=== PATIENT | male | born 1950 | race Caucasian/White ===

== ENCOUNTER 2025-01-15 09:24 | Outpatient (REF) | payer MEDICARE, OTHER, SELFPAY ==
--- NOTE | ~2025-01-15 | US_ITS ---
EXAMINATION: US ABDOMEN COMPLETE WITH LIVER ELASTOGRAPHY HISTORY: CHRONIC HEPATITIS TECHNIQUE: Real-time grayscale ultrasound imaging of the abdomen was performed and images were reviewed. COMPARISON: Comparison is made with the prior examination dated 07/23/2019. FINDINGS: Liver: The right lobe of the liver measures 15.4 cm in size. The left lobe of the liver measures 12.7 cm in size. The liver demonstrates increased echotexture, consistent with steatosis. No focal mass or intrahepatic biliary ductal dilatation is identified. There is normal hepatopedal flow in the portal vein. Ultrasound elastography of the liver was performed with 10 separate measurements of the liver parenchyma with the patient in the supine position. Measurements were obtained approximately 2 cm below Ketan's capsule and perpendicular to the capsule. The median shear wave velocity is 1.51 m/s. The interquartile range/median (IQR/median) is 0.07. Gallbladder and biliary tree: There are tiny polyps in the gallbladder. The gallbladder is otherwise unremarkable, without evidence of calculi, wall thickening, or pericholecystic fluid. There is no sonographic Peres sign. The common bile duct is normal in caliber measuring 3 mm. Kidneys: The right kidney measures 11.7 cm in length and demonstrates a 5 mm cyst in the interpolar region with a calcified wall. The left kidney measures 11.3 cm in length and is unremarkable. Pancreas: The pancreatic head, neck, and body are unremarkable. The pancreatic tail is obscured by bowel gas. Spleen: The spleen is enlarged, measuring 15.0 cm in length. Abdominal aorta and inferior vena cava: The visualized portions of the abdominal aorta and inferior vena cava are normal in caliber. There is no free fluid in the abdomen. US/US abdomen comp w elastography IMPRESSION: 1. Hepatic steatosis. 2. Tiny gallbladder polyps. 3. Splenomegaly. The median shear wave velocity in the liver is 1.51 m/s, corresponding to a median liver stiffness of 6.82 kPa. The IQR/median value is 0.07. This is indicative of a quality data set. Findings are indicative of a low elastography value which rules out advanced chronic liver disease in asymptomatic patients. REFERENCE: Society of Radiologists in Ultrasound Liver Stiffness Thresholds (2020): LIVER STIFFNESS THRESHOLDS: *Shear wave velocity less than 1.3 m/s (Liver Stiffness equal or less than 5 kPa): High probability of being normal. *Shear wave velocity less than 1.7 m/s (Liver Stiffness less than 9 kPa): In the absence of other known clinical signs, rules out compensated advanced chronic liver disease. *Shear wave velocity between 1.7-2.1 m/s (Liver Stiffness 9-13 kPa): Suggestive of compensated advanced chronic liver disease but need further test for confirmation. *Shear wave velocity between 2.1-2.4 m/s (Liver Stiffness 13-17 kPa): Rules in compensated advanced chronic liver disease. *Shear wave velocity greater than 2.4 m/s (Liver Stiffness over 17 kPa): Suggestive of clinically significant portal hypertension. QUALITY OF DATA SET: *IQR/Median value equal or less than 0.15 implies a quality data set. *IQR/Median value over 0.15 implies a poor quality data set. SIGNIFICANT CHANGE FROM PRIOR EXAM: Significant change if liver stiffness measurement is 10% or greater from prior exam. OTHER CONSIDERATIONS: The stage of liver fibrosis may be overestimated in the setting of acute hepatitis, liver inflammation, elevated liver function tests, hepatic vascular congestion, obstructive cholestasis, non-fasting state, and infiltrative diseases such as amyloidosis and lymphoma. In some patients with NAFLD, the liver stiffness thresholds for compensated advanced chronic liver disease may be lower. In causes other than viral hepatitis and NAFLD, liver stiffness thresholds are not well established. Electronically signed by: Bj Ventura MD 01/15/2025 11:09 AM EDT
[2025-01-15 09:41] LABS: MANUAL DIFF FLAG NO
--- OUTSIDE RECORDS SUMMARY | 2025-01-15 10:04 | XMS_ITS | Patient Health Record ---
Author Organization [facility] miguel [place]Mem[place] Address [address] [place] [address] Care Team Providers Care Supervisory Clerk Name Role Phone Simon Alcaraz MD Primary Care Provider Narayan Izquierdo Unavailable [phone] Allergies Allergen (clinical drug ingredient) Drug/Non Drug [...] Status Risk Notes Problem Plantar fascial fibromatosis (90244124) Plantar fascial fibromatosis (M72.2) Active confirmed Plan Of Treatment No Information Insurance Providers Payer Name Payer Address Payer Phone Subscriber Number Group Number Insured Name Patient Relationship to Insured Coverage Start Date Coverage End Date Medicare National Govt [employer] [address] [place] [address] [id number] Minesh Terrell Self - patient is the insured [employer] (Unicare) [address] [place] [address] [phone] [id number] Minesh Terrell Self - patient is the insured Medical (General) History Medical History History ICD Code Arthritis Back,Hip,and Knee pain Cancer Heart disease Atrial fibrillation High blood pressure Measles Mumps Chicken pox CAD Surgical History Surgery Date(Month/Year) Hernia Repair 04/2018 basal cell removal 07/2018 cataract surgery 01/29 2019 Ablation 04/2019
[2025-01-15 10:39] LABS: Basophils Absolute Auto 0.1 X10*3/uL (0.0-0.2); Eosinophils Absolute Auto 0.1 X10*3/uL (0.0-0.4); Eosinophils Percent Auto 2.1 % (0-4); Hemoglobin 15.7 g/dl (14.0-18.0); Imm Gran Abs Auto 0.06 X10*3/uL (0.00-0.03); Imm Gran Pct Auto 1.2 % (0.0-0.4); Lymphocytes Absolute Auto 0.9 X10*3/uL (1.2-4.9); Lymphocytes Percent Auto 17.7 % (20-40); Mean Corpuscular HGB Conc 34.9 g/dl (31.0-36.0); Mean Corpuscular Hemoglobin 32.4 pg (27.0-33.0); Mean Platelet Volume 10.4 fL (9.4-12.4); Monocytes Percent Auto 19.1 % (2-11); Neutrophils Absolute Auto 3.1 x10*3/uL (2.0-8.3); Neutrophils Percent Auto 58.9 % (45-73); Platelet Count 172 X10*3/uL (160-400); Red Blood Count 4.84 X10*6/uL (4.60-5.80); Red Cell Distribution Width 13.2 % (11.0-16.0); White Blood Count 5.2 X10*3/uL (4.8-10.8)
[2025-01-15 10:41] LABS: INTERNATIONAL NORM RATIO 0.9 (0.9-1.1); Prothrombin Time 10.2 SEC (10.9-12.4)
[2025-01-15 11:07] LABS: Alanine Aminotransferase 42 U/L (0-40); Albumin Level 4.4 g/dL (3.5-5.0); Alkaline Phosphatase 74 U/L (39-117); Aspartate Amino Transferase 29 U/L (5-37); Bilirubin Direct 0.3 mg/dL (0.0-0.5); Bilirubin Total 0.5 mg/dL (0.0-1.0); Total Protein 6.5 g/dL (6.5-8.0)
[2025-01-28 01:48] LABS: FIB-ALT 30 U/L (9-46); FIB-Alpha-2-Macroglobulin 138 mg/dL (106-279); FIB-Apolipoprotein A1 157 mg/dL (94-176); FIB-GGT 26 U/L (3-70); FIB-Haptoglobin 34 mg/dL (43-212); FIB-Total Bilirubin 0.5 mg/dL (0.2-1.2); Liver Fibrosis Score 0.34; Liver Fibrosis Stage F1-F2; Nec Inflam Act Grade A0; Nec Inflam Act Score 0.15
== END 2025-01-15 09:25 | disposition home or self-care (01) ==
LOC: HO.US 09:24
PROVIDERS: PCP Internal Medicine; Visit Provider Internal Medicine
DX: Z87.19 Personal history of other diseases of the digestive system (principal)
CPT/HCPCS: 36415; 76700; 76981; 80076; 81596; 82105; 85025; 85610

== ENCOUNTER → 2025-01-15 10:08 | Outpatient (BNV) | payer MEDICARE, OTHER, SELFPAY | PROVIDERS: PCP Internal Medicine; Visit Provider Radiology Diagnostic Radiology | DX: R16.1 Splenomegaly, not elsewhere classified (principal); K76.0 Fatty (change of) liver, not elsewhere classified | CPT/HCPCS: 76700; 76981 ==

== ENCOUNTER 2025-02-13 08:41 | Day surgery (SDC) | payer MEDICARE, OTHER, SELFPAY ==
--- OUTSIDE RECORDS SUMMARY | 2024-12-27 09:03 | XMS_ITS | Patient Health Record ---
Author Organization [facility] miguel WoodardOziel Address [address] [place] [address] Care Team Providers Care Music Theory Teacher Name Role Phone Simon Alcaraz MD Primary Care Provider Narayan Izquierdo Unavailable [phone] Allergies Allergen (clinical drug ingredient) Drug/Non Drug Allergy documented on EMR Reaction Allergy Type Onset Date Status Bee Stings (uncoded) Unknown Allergy Active Substance with sulfonamide structure and antibacterial mechanism of action (substance) Sulfa Drugs (uncoded) Hives Allergy Active sulfamethoxazole / trimethoprim Bactrim Hives Drug Allergy Active Reason For Referral No Information Medications Medication SIG (Take, Route, Frequency, Duration) Notes Start Date End Date Status Vitamins/Minerals - as directed Orally Active Vitamin D 50 MCG (1999) 1 tablet Oral ly Once a day for 30 day(s) Active Testosterone Active Aspirin 81 81 MG 1 tablet Orally Once a day for 30 day(s) Active Lipitor 40 MG 1 tablet Orally Once a day for 30 day(s) Active valACYclovir HCl 500 MG 1 tablet Orally Once a day for 10 day(s) Active Lisinopril 10 MG 1 tablet Orally Once a day for 30 day(s) Active Dilt-XR 180 MG 1 capsule Orally Onc e a day for 30 day(s) Active Social History Tobacco Use: Social History Observation Description Date Details (start date - stop date) Former Smoker NA - NA Tobacco Use/Smoking Question Answer Notes Are you a: former smoker Additional Findings: Tobacco Non-User Current no n-smoker Alcohol Screen Question Answer Notes Did you have a drink containing alcohol in the p ast year? Yes Points 0 Interpretation Negative Tobacco use other than smoking: Question Answer Notes Are you an other tobacco user? 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 confirmed Plan Of Treatment No Information Insurance Providers Payer Name Payer Address Payer Phone Subscriber Number Group Number Insured Name Patient Relationship to Insured Coverage Start Date Coverage End Date Medicare National Govt [employer] [address] [place] [address] [phone] [id number] Minesh Terrell Self - patient is the insured [employer] (Unicare) [address] [place] [address] [id number] Minesh Terrell Self - patient is the insured Medical (General) History Medical History History ICD Code Arthritis Back,Hip,and Knee pain Cancer Heart disease Atrial fibrillation High blood pressure Measles Mumps Chicken pox CAD Surgical History Surgery Date(Month/Year) Hernia Repair 04/2018 basal cell removal 07/2018 cataract surgery 01/29 2019 Ablation 04/2019
[2025-02-11 15:12] VITALS: BMI 31.2
--- NOTE | 2025-02-12 14:40 | HO.ANESPROP2 ---
Documented by User: Radhika Grimm NP 02/12/25 14:41 HPI - Anesthesia Eval Consult details Narrative: 74 yr old male for colonoscopy S/P cardiac ablation 2018 for a flutter with tachycardia: on eliquis ODILON: on CPAP PMFSH Past Medical History Medical History Basal cell carcinoma Hyperlipidemia HLD (hyperlipidemia) ODILON on CPAP Atrial flutter HTN (hypertension) Hx of hepatitis C Surgical History Surgical History H/O eye surgery History of liver biopsy (1994) Hx of bilateral cataract extraction Hx of umbilical hernia repair Hx of colonoscopy Social History Social History Are you a primary animal caregiver to a significant other at home: No Do you presently have visiting nurse or other home services: No Patient Tobacco Use Status: Never used Tobacco Use of substances other than those prescribed or required for medical reasons: No Have you been hit, kicked, punched, or otherwise hurt by someone within the past year? If so, by whom?: No Are you DNR?: No Advance Directives: No Advance Directives Information Provided: Yes Poor oral hygiene: No Meds Allergies Allergy/AdvReac Type Severity Reaction Status Date / Time bee pollen (BEE STINGS) Allergy Severe ANAPHYLAXIS Verified 02/13/25 08:27 sulfamethoxazole (From Allergy Severe RASH Verified 02/13/25 08:27 BACTRIM) trimethoprim (From BACTRIM) Allergy Severe RASH Verified 02/13/25 08:27 Home Medications ?Medication ?Instructions ?Recorded ?Confirmed ?Last Taken ?Type apixaban 5 mg tablet (Eliquis) 5 mg PO BID 02/11/25 02/13/25 02/06/25 History diltiazem HCl 240 mg 240 mg PO DAILY 02/11/25 02/13/25 02/13/25 07:30 History capsule,extended release 24 hr, controlled (DILT-XR) hydrochlorothiazide 25 mg tablet 25 mg PO DAILY 02/11/25 02/13/25 02/11/25 History lisinopril 30 mg tablet 30 mg PO DAILY 02/11/25 02/11/25 Unknown History rosuvastatin 40 mg tablet 40 mg PO DAILY 02/11/25 02/11/25 Unknown History Exam Height,Weight and Vital Signs: Height 5 ft 7.5 in Weight 91.626 kg Documented by User: Yary Green MD 02/13/25 09:58 PMFSH Past Medical History Medical History Basal cell carcinoma Hyperlipidemia HLD (hyperlipidemia) ODILON on CPAP Atrial flutter HTN (hypertension) Hx of hepatitis C Family History Family history of problems with anesthesia: No Surgical History Surgical History H/O eye surgery History of liver biopsy (1994) Hx of bilateral cataract extraction Hx of umbilical hernia repair Hx of colonoscopy History of Problems with Anesthesia: No Social History Social History Are you a primary animal caregiver to a significant other at home: No Do you presently have visiting nurse or other home services: No Patient Tobacco Use Status: Never used Tobacco Use of substances other than those prescribed or required for medical reasons: No Have you been hit, kicked, punched, or otherwise hurt by someone within the past year? If so, by whom?: No Are you DNR?: No Advance Directives: No Advance Directives Information Provided: Yes Poor oral hygiene: No Meds Allergies Allergy/AdvReac Type Severity Reaction Status Date / Time bee pollen (BEE STINGS) Allergy Severe ANAPHYLAXIS Verified 02/13/25 08:27 sulfamethoxazole (From Allergy Severe RASH Verified 02/13/25 08:27 BACTRIM) trimethoprim (From BACTRIM) Allergy Severe RASH Verified 02/13/25 08:27 Home Medications ?Medication ?Instructions ?Recorded ?Confirmed ?Last Taken ?Type apixaban 5 mg tablet (Eliquis) 5 mg PO BID 02/11/25 02/13/25 02/06/25 History diltiazem HCl 240 mg 240 mg PO DAILY 02/11/25 02/13/25 02/13/25 07:30 History capsule,extended release 24 hr, controlled (DILT-XR) hydrochlorothiazide 25 mg tablet 25 mg PO DAILY 02/11/25 02/13/25 02/11/25 History lisinopril 30 mg tablet 30 mg PO DAILY 02/11/25 02/11/25 Unknown History rosuvastatin 40 mg tablet 40 mg PO DAILY 02/11/25 02/11/25 Unknown History Exam Airway Mallampati Class: II TM Dist: >3cm Neck ROM: Full Heart: rrr Lungs: cta Assessment and Plan Assessment Anesthesia Assessment: Anesthesia Plan Discussed and Chart Reviewed Final Anesthetic Review Family History of Problems with Anesthesia: No History of Problems with Anesthesia: No NPO: Yes ASA Class: III Final Preanesthetic Review: No Changes in Pt Med Stat, Meds/Allgs Chart Reviewed, Consent Obtained/Reviewed and Anes Risks/Benef Reviewed Patient Risk: Intermediate Procedure Risk: Low Anesthetic Plan Anesthetic Plan: MAC: Disposition: Standard PACU
[2025-02-13 08:51] VITALS: BMI 30.9
[2025-02-13 09:07] VITALS: BP 124/76; PULSE 87; RESP 16; TEMP 36.1; O2SAT 98
[2025-02-13] MEDS: Lactated Ringers 1,000 ML 100 ML IVCONT (09:22)
[2025-02-13 11:05] VITALS: BP 103/62; PULSE 70; RESP 20; TEMP 35.9; O2SAT 95
--- NOTE | 2025-02-13 11:07 | PM.OP ---
Brief Operative Note Date of Service: 02/13/25 Pre-op diagnosis: Screening Post-op diagnosis: other (Colon polyps) Procedure: Colonoscopy to the cecum and TI with cold bx/removal of polyps, cold snare polypectomy, and hot snare polypectomy, and with placement of 3 Resolution clips Surgeon: Bj Carrillo MD Anesthesia: MAC Was an Core Microarchitect used for this Procedure?: No Estimated blood loss (mL): 2.0 Pathology: other (A. Cecal polyp B. Ascending colon polyps x 3) Condition: stable Disposition: PACU
[2025-02-13 11:20] VITALS: BP 112/70; PULSE 65; RESP 18; O2SAT 96
[2025-02-13 11:29] VITALS: BP 120/74; PULSE 82; RESP 16; TEMP 36.1; O2SAT 97
--- NOTE | 2025-02-14 14:35 | OP_ITS ---
DATE OF SERVICE: 02/13/2025 SURGEON: Bj Carrillo MD INDICATIONS: The patient presents for evaluation of colorectal cancer screening and personal history of tubular adenomas of the colon. Full consent has been obtained from him for this, including risks of bleeding and perforation. PREOPERATIVE DIAGNOSIS: POSTOPERATIVE DIAGNOSIS: PROCEDURE PERFORMED: Colonoscopy to the cecum and terminal ileum with biopsy and removal of polyps, cold snare polypectomy, hot snare polypectomy, and placement of resolution clips. ESTIMATED BLOOD LOSS: COMPLICATIONS: ANESTHESIA: Medication used, monitored anesthesia care. ASSISTANTS: SPECIMENS: PREOPERATIVE DIAGNOSES: Colorectal cancer screening, personal history of tubular adenomas of the colon. POSTOPERATIVE DIAGNOSES: Colorectal cancer screening, personal history of tubular adenomas of the colon, colon polyps, diverticulosis, and internal hemorrhoids. DESCRIPTION OF PROCEDURE: The patient was placed in the left lateral decubitus position. The digital rectal exam revealed no abnormalities. The Olympus video pediatric colonoscope was entered into the rectum and advanced easily to the cecum. Once in the cecum, I did identify cecal pouch with appendiceal orifice and a normal-appearing ileocecal valve. The terminal ileum was cannulated and appeared normal. The scope was withdrawn back in the colon. The entire cecum was well visualized. In the cecum was a flat, but raised approximately 6 mm polyp, which was removed by cold snare polypectomy and recovered by suction. The polypectomy site appeared clean, without any sign of residual polyp nor significant bleeding. A single resolution clip was applied to the polypectomy site with good deployment and good hemostasis. The scope was then slowly withdrawn assessing all mucosal surfaces carefully. Preparation was excellent. In the ascending colon were 2 approximately 3 or 4 mm polyps, both of which were biopsied and completely removed with the cold biopsy forceps. There was no sign of any residual polyp nor any significant bleeding. Also in the more distal ascending colon was a flat, but raised approximately 12 mm polyp, which was removed by hot snare polypectomy and then recovered by suction. The polypectomy site appeared clean, without any sign of residual polyp nor bleeding. Two resolution clips were applied with good deployment and good hemostasis. I did not visualize any other polyps, colitis, nor angiodysplasia. There was a moderate amount of sigmoid diverticulosis. In the rectum, scope was retroflexed visualizing internal hemorrhoids, but no other pathology. The rectal mucosa appeared normal. Scope was straightened and withdrawn from the patient. He tolerated the procedure well and was returned to the recovery area in stable condition. IMPRESSION: 1. Colon polyps. 2. Diverticulosis. 3. Internal hemorrhoids. PLAN: The results of the pathology will be checked. Given these findings and his previous history of polyps, I would recommend a repeat colonoscopy in 3 years for further screening and surveillance, although at that point, he would be about 77 years old, and we would need to take his clinical condition into account. He was advised to resume his Eliquis in 48 hours. He was advised to stay off all aspirin and NSAIDs long-term while on the Eliquis He will otherwise see me on a p.r.n. basis. MD ALDAIR Harris/GIGI / [id number] MTDD
== END 2025-02-13 11:47 | disposition home or self-care (01) ==
PROVIDERS: PCP Internal Medicine; Visit Provider Internal Medicine
PROC: 0DJD8ZZ Inspection of Lower Intestinal Tract, Via Natural or Artificial Opening Endoscopic (ICD-10-PCS; CPT 45378; principal; 2025-02-13 09:30)
DX: Z12.11 Encounter for screening for malignant neoplasm of colon (principal); Z86.0101 Personal history of adenomatous and serrated colon polyps; Z83.719 Family history of colon polyps, unspecified; D12.0 Benign neoplasm of cecum; D12.2 Benign neoplasm of ascending colon; K57.30 Diverticulosis of large intestine without perforation or abscess without bleeding; K64.8 Other hemorrhoids; Z80.0 Family history of malignant neoplasm of digestive organs; I10 Essential (primary) hypertension; E78.5 Hyperlipidemia, unspecified; I48.92 Unspecified atrial flutter; Z86.19 Personal history of other infectious and parasitic diseases; Z85.828 Personal history of other malignant neoplasm of skin; G47.33 Obstructive sleep apnea (adult) (pediatric); Z79.01 Long term (current) use of anticoagulants; Z79.899 Other long term (current) drug therapy; Z99.89 Dependence on other enabling machines and devices; Z88.2 Allergy status to sulfonamides; Z87.891 Personal history of nicotine dependence; Z98.890 Other specified postprocedural states
CPT/HCPCS: 45385; 45380; 88305; J2704; J3010

== ENCOUNTER 2025-04-17 09:58 | Outpatient (AMB) | payer MEDICARE, OTHER, SELFPAY ==
--- OUTSIDE RECORDS SUMMARY | 2025-02-13 05:30 | XMS_ITS ---
Author Organization [facility] Address [address] [place] [phone] Care Team Providers Care Radio Board Operator Announcer Name Role Phone Simon Alcaraz MD Primary Care Provider Bj Armas [phone] REASON FOR VISIT screening,hx polyps Encounters Encounter Location Date Provider Diagnosis [facility] [address] [place] [id number] 02/13/2025 Bj Carrillo Plan Of Treatment Next Appt Details Provider Name:Bj Carrillo , 02/11/2026 01:00:00 PM, [address] [facility], [address], [place], [address], Progress Notes * LEESA ATKINS ADOB:1949 (75 yo M)Acc No.[id number]:02/13/2025 COLON WITH MAC Patient: Radha LAZARO LEESA Narvaez Provider: Ora Carrillo MD :1950 A ge:74 Y S ex:Male Date:02/13/2025 Address:[address] [place] [id number] Pcp:Simon Alcaraz MD Subjective: * Chief Complaints: * 1 . Screening,hx polyps. * Medical History: Objective: * Vitals: Assessment: Plan: * Treatment: * * The named appointment provid er may or may not be the originator of this progress note, and it is not deemed complete until electronically signed by the appointment provider. Sign off status: Pending * Provider: Ora Carrillo MD Date: 0 02/13/2025 Generated for Corine andres/Nicky/Ritikaitting on: 0 04/17/2025 12:11 PM EDT
--- NOTE | 2025-04-17 10:04 | MHC.OFFVIS ---
Vital Signs 04/17/25 10:11 Height 5 ft 7 in Weight 202 lb BMI 31.6 BP 131/60 Blood Pressure Location Lt brachial Position Sitting Pulse 71 Intake Visit Reasons: possible perianal cyst Intake Note: Patient referred by Dr. Carrillo for possible perianal cyst. Patient c/o: cyst flares on and off for yrs. Last flare up 2wks ago. Became inflamed, pain when sitting. Reports cyst improved with OTC 1%HC. Identity Management Consultant Required: No Accompanied by: Self / Same As Patient Allergies bee pollen (BEE STINGS) Allergy (Severe, Verified 04/17/25 10:10) ANAPHYLAXIS sulfamethoxazole (From BACTRIM) Allergy (Severe, Verified 04/17/25 10:10) RASH trimethoprim (From BACTRIM) Allergy (Severe, Verified 04/17/25 10:10) RASH HPI HPI possible perianal cyst: Details: 75-year-old male with a long history of perianal cyst presenting to the office for evaluation following referral from Dr. Carrillo. Patient states that about 2 weeks ago he had a flare-up of the cyst that was draining some pus and very tender. He states this happens relatively infrequently. He reports that he used [id number] hydrocortisone cream on the area which greatly improved his symptoms. It is no longer draining, is no longer tender and he is unable to feel the cyst at this time. His goals were to establish care in the case of this flaring up again he may want to pursue surgical intervention in the future. [facility] Medical History Basal cell carcinoma Hyperlipidemia HLD (hyperlipidemia) ODILON on CPAP Atrial flutter HTN (hypertension) Hx of hepatitis C Surgical History H/O eye surgery History of liver biopsy (1994) Hx of bilateral cataract extraction Hx of umbilical hernia repair Hx of colonoscopy Social History Are you a primary life care planner to a significant other at home: No Do you presently have visiting nurse or other home services: No Patient Tobacco Use Status: Never used Tobacco Physical Exam Vital Signs: Last Vital Signs Pulse 71 04/17/25 10:11 BP 131/60 04/17/25 10:11 BMI result Body Mass Index 31.6 Const General: comfortable and no acute distress Orientation/consciousness: patient oriented x3 Resp Effort & Inspection: normal respiratory effort and able to speak in complete sentences GI Rectal Exam - Male: Yes visual inspection normal, No Rectal prolapse, No Lesions present (GI), No Fistula present (GI), No mass and No tenderness Neuro General: patient oriented x3 Assessment & Plan Assessment & Plan (1) Perianal cyst: Code(s): K62.89 - Other specified diseases of anus and rectum Category: Medical Plan 75-year-old male with a history of HLD, HTN, ODILON on CPAP, atrial flutter s/p ablation x2 (on Eliquis), hepatitis-C s/p treated 1990s presenting to the office for evaluation of a perianal cyst. This has been a longstanding issue for him and this occasionally flares up. He was referred to General surgery due to a recent flare-up about 2 weeks ago where the cyst was very inflamed, draining. States he was unable to sit due to discomfort. He reports that he was using OTC hydrocortisone cream at home which has resolved this issue currently. Currently denies any pain around the anus, there was no further drainage, he has been unable to appreciate the cyst since the swelling has decreased. On exam the perianal area appears normal to inspection. I was unable to appreciate the cyst at this time in the area was nontender. We discussed options including conservative management including watching this and managing flare ups as he has in the past versus surgical intervention. Patient would prefer to treat this more conservatively rather than surgery at this time as his flare-ups are infrequent and manageable with this current regimen. His goals were to establish care in the event that these flare-ups become more frequent and more bothersome for him. At this point he does not need to follow up with this unless he has concern for another flare would like to pursue surgery in the future. He understands these options and will reach out with any concerns in the future. Coding Level of Care Code New Pt Level 3 (85971) Diagnoses Perianal cyst K62.89
[2025-04-17 10:11] VITALS: BP 131/60; PULSE 71; BMI 31.6
--- OUTSIDE RECORDS SUMMARY | 2025-04-17 12:11 | XMS_ITS | Encounter Summary ---
Author Organization [facility] Address [address] [place] [address] Phone Care Team Providers Care Museum Librarian Name Role Phone Simon Alcaraz MD Primary Care Provider [phone] Simon Alcaraz MD Unavailable [phone] Bj Carrillo MD Unavailable [phone] Renetta Maria PA-C Unavailable [phone] Raman Kumar Unavailable [phone] Encounter Details Date Type Department Care Team (Late st Contact Info) Description 05/03/2019 Procedure Pass [facility] [address] [place], [place] [id number] Social History Tobacco Use Types Packs/Day Years Used Date Smoking Tobacco: Former Cigarettes Q uit: 1987 Smokeless Tobacco: Never Alcohol Use Standard Drinks/Week Comments Yes 0 (1 standard drink = 0.6 oz pur e alcohol) 3 or 4 drinks a week Sex and Gender Information Value Date Recorded Sex Assigned at Not on file Legal Sex Male 10:04 PM EDT Gender Identity Not on file Sexual Orientation Not on file documented as of this encounter Plan of Treatment Upcoming Encounters Date Type Department Care Team (Latest Contact Info) Description 07/22/2025 4:00 PM EST Office Visit [facility] Internal Medicine [address] [place], [place] [phone] Simon Alcaraz MD 40 [place], [place] [phone] 09/20/2025 1:00 PM EST Ancillary Procedure [facility] [address] [facility] [address]rd Floor, [address] [place] [address] Tino Youngblood MD [address] [facility], [address] [place] [address] [email or web address] 12/25/2025 1:00 PM EDT Office Visit [facility] Internal Medicine [address] [place] [address] Simon Alcaraz MD 40 [place] [address] documented as of this encounter Visit Diagnoses Not on filedocumented in this encounter Additional Health Concerns Assessment Noted Time PHQ-2 Depression Total Score: 0 06/06/20 18 9:34 AM EST documented as of this encounter Care Teams Museum Librarian Relationship Specialty Start Date End Date Simon Alcaraz MD 40 [place] [address] PCP - General Internal Medicine 06/13/17 Simon Alcaraz MD 40 [place] [address] Insurance Assigned Provider 10/29/23 Bj Carrillo MD [address] [place] [address] [place] [address] Gastroenterology 06/09/20 Renetta Maria PA-C 30 [place] [address] [email or web address] Physician Sexual Assault Response Coordinator Physician Sexual Assault Response Coordinator 12/11/24 Raman Kumar MBBS [address] [place] [address] [email or web address] Primary Oncologist Internal Medicine 04/04/25 documented as of this encounter Additional Source Comments The information contained in this document represents components of the legal health record. It is not the complete legal health record.[facility]
--- OUTSIDE RECORDS SUMMARY | 2025-04-17 12:11 | XMS_ITS | Encounter Summary ---
Author Organization [facility] Address [address] [place] [address] Phone Care Team Providers Care Senior Power Plant Operator Name Role Phone Simon Alcaraz MD Primary Care Provider [phone] Simon Alcaraz MD Unavailable [phone] Bj Carrillo MD Unavailable [phone] Renetta Maria PA-C Unavailable [phone] Raman Kumar Unavailable [phone] Encounter Details Date Type Department Care Team (Late st Contact Info) Description 04/19/2019 Procedure Pass [facility] 30 [place], [place] [phone] Social History Tobacco Use Types Packs/Day Years [...] 07/22/2025 4:00 PM EST Office Visit [facility] Internal Medicine 40 [place], [place] [phone] Simon Alcaraz MD 40 [place], [place] [phone] 09/20/2025 1:00 PM EST Ancillary Procedure [facility] [address] [facility] [address]rd Floor, [address] [place] [address] Tino Youngblood MD [address] [facility], [address] [place] [address] [email or web address] 12/25/2025 1:00 PM EDT Office Visit [facility] Internal Medicine 40 [place] [address] Simon Alcaraz MD 40 [place] [address] documented as of this encounter Visit Diagnoses Not on filedocumented in this encounter Additional Health Concerns Assessment Noted Time PHQ-2 Depression Total Score: 0 06/06/20 18 9:34 AM EST documented as of this encounter Care Teams Senior Power Plant Operator Relationship Specialty Start Date End Date Simon Alcaraz MD 40 [place] [address] PCP - General Internal Medicine 06/13/17 Simon Alcaraz MD 40 [place] [address] Insurance Assigned Provider 10/29/23 Bj Carrillo MD [address] [place] [address] [place] [address] Gastroenterology 06/09/20 Renetta Maria PA-C 30 [place] [address] [email or web address] Physician Special Technical Operations Officer Physician Special Technical Operations Officer 12/11/24 Raman Kumar MBBS [address] [place] [address] [email or web address] Primary Oncologist Internal Medicine 04/04/25 documented as of this encounter Additional Source Comments The information contained in this document represents components of the legal health record. It is not the complete legal health record.[facility]
--- OUTSIDE RECORDS SUMMARY | 2025-04-17 12:11 | XMS_ITS | Encounter Summary ---
Author Organization [facility] Address [address] [place] [address] Phone Care Team Providers Care Shell Molder Name Role Phone Simon Alcaraz MD Primary Care Provider Simon Alcaraz MD Unavailable Bj Carrillo MD Unavailable Renetta Maria PA-C Unavailable Raman Kumar Unavailable Encounter Details Date Type Department Care Team (Late st Contact Info) Description 04/19/2019 Ancillary Orders Virtual Department 30 [place], [place] [phone] Brooks Gonzalez MD [address] [place] [address] [address] Atrial flutter, unspecified type Social History Tobacco Use Types Packs/Day Years [...] Description 07/22/2025 4:00 PM EST Office Visit [facility] Internal Medicine 40 [place], [place] [phone] Simon Alcaraz MD 40 [place], [place] [phone] 09/20/2025 1:00 PM EST Ancillary Procedure [facility] [address] Floor, [address] [place] [address] Tino Youngblood MD [address] [facility], [address] [place] [address] [email or web address] 12/25/2025 1:00 PM EDT Office Visit [facility] Internal Medicine 40 [place], [place] [phone] Simon Alcaraz MD 40 [place], [place] [phone] Pending Results Name Type Priority Associated Diagnoses Date /Time CARDIOVERSION Cardiac Monitors Routine Atrial flutter, unspecified type 04/20/2019 8:27 AM EDT Scheduled Orders Name Type Priority Associated Diagnoses Orde r Schedule CARDIOVERSION Cardiac Monitors Routine Atrial flutter, unspecified type Expected: 04/19/2019, Expires: 07/19/2019 documented as of this encounter Visit Diagnoses Diagnosis Atrial flutter, unspecified type documented in this encounter Additional Health Concerns Assessment Noted Time PHQ-2 Depression Total Score: 0 06/06/20 18 9:34 AM EST documented as of this encounter Care Teams Shell Molder Relationship Specialty Start Date End Date Simon Alcaraz MD 40 [place], [place] [phone] PCP - General Internal Medicine 06/13/17 Simon Alcaraz MD 40 [place], [place] [phone] [email or web address] Insurance Assigned Provider 10/29/23 Bj Carrillo MD [address] [place] [address] Gastroenterology 06/09/20 Renetta Maria PA-C [address] [place] [address] [email or web address] Physician Log Cut Off Sawyer Physician Log Cut Off Sawyer 12/11/24 Raman Kumar MBBS [address] [place] [address] [email or web address] Primary Oncologist Internal Medicine 04/04/25 documented as of this encounter Additional Source Comments The information contained in this document represents components of the legal health record. It is not the complete legal health record.[facility]
--- OUTSIDE RECORDS SUMMARY | 2025-04-17 12:11 | XMS_ITS | Encounter Summary ---
Author Organization [facility] Address [address] [facility] [address] [place] [address] Phone Care Team Providers Care Living Coach Name Role Phone Simon Alcaraz MD Primary Care Provider [phone] Simon Alcaraz MD Unavailable Bj Carrillo MD Unavailable [phone] Renetta Maria PA-C Unavailable [phone] Raman Kumar Unavailable Encounter Details Date Type Department Care Team (Late st Contact Info) Description 04/19/2019 Ancillary [facility] [address] Floor, [address] [place] [address] Brooks Gonzalez MD [address] [place] [address] Social History Tobacco Use Types Packs/Day Years [...] 07/22/2025 4:00 PM EST Office Visit [facility] Internal Medicine 40 [place], [place] [phone] Simon Alcaraz MD 40 [place], [place] [phone] 09/20/2025 1:00 PM EST Ancillary Procedure [facility] [address] [facility] 3rd Floor, [address] [place] [address] Tino Younbglood MD [address] [facility], [address] [place] [address] [email or web address] 12/25/2025 1:00 PM EDT Office Visit [facility] Internal Medicine [address] [place], [place] [phone] Simon Alcaraz MD 40 [place], [place] [phone] documented as of this encounter Visit Diagnoses Not on filedocumented in this encounter Additional Health Concerns Assessment Noted Time PHQ-2 Depression Total Score: 0 06/06/20 18 9:34 AM EST documented as of this encounter Care Teams Living Coach Relationship Specialty Start Date End Date Simon Alcaraz MD [address] [place], [place] [phone] PCP - General Internal Medicine 06/13/17 Simon Alcaraz MD 40 [place], [place] [phone] Insurance Assigned Provider 10/29/23 Bj Carrillo MD [address] [place] [address] Drive [address] [place] [address] Gastroenterology 06/09/20 Renetta Maria PA-C [address] [place] [address] [email or web address] Physician Acidity Tester Physician Acidity Tester 12/11/24 Raman Kumar MBBS [address] [place] [address] [email or web address] Primary Oncologist Internal Medicine 04/04/25 documented as of this encounter Additional Source Comments The information contained in this document represents components of the legal health record. It is not the complete legal health record.[facility]
--- OUTSIDE RECORDS SUMMARY | 2025-04-17 12:11 | XMS_ITS | Encounter Summary ---
Author Organization [facility] Address [address] [place] [address] Phone Care Team Providers Care Cashier Gambling Name Role Phone Simon Alcaraz MD Primary Care Provider [phone] Simon Alcaraz MD Unavailable [phone] Bj Carrillo MD Unavailable Renetta Maria PA-C Unavailable Raman Kumar Unavailable Encounter Details Date Type Department Care Team (Latest Contact Info) Description 04/20/2019 Transcribe Orders Non-Invasive Cardiology 30 [place] [address] Brooks Gonzalez MD [address] [address] Atrial flutter, unspecified type (Primary Dx) Social History Tobacco Use Types Packs/Day Years [...] Description 07/22/2025 4:00 PM EST Office Visit [facility] Internal Medicine [address] [place] [address] Simon Alcaraz MD 40 [place], [place] [phone] 09/20/2025 1:00 PM EST Ancillary Procedure [facility] [address] [facility] 3rd Floor, [address] [place] [address] Tino Youngblood MD [address] [facility], [address] [place], [place] [phone] [email or web address] 12/25/2025 1:00 PM EDT Office Visit [facility] Internal Medicine [address] [place], [place] [phone] Simon Alcaraz MD 40 [place], [place] [phone] [email or web address] documented as of this encounter Results * ECG 12-LEAD (04/20/2019 9:55 AM EDT) Ventricular Rate EKG/MIN 125 BPM [facility] Atrial Rate 136 BPM [facility] VT Interval 168 ms [facility] QRS Duration 94 ms [facility] QT Interval 368 ms [facility] QTC Interval 531 ms [facility] P [place] 69 degrees [facility] R Wave [place] 21 degrees [facility] T Wave [place] 69 degrees [facility] 04/20/2019 9:55 AM EDT 05/29/2019 1:47 PM EST Narrative [facility] - 05/29/2019 1:47 PM EST Atrial flutter with variable A-V block Nonspecific ST abnormality Abnormal ECG No previous ECGs available Confirmed by LUCIA RONQUILLO MD ([id number]) on 05/29/2019 1:47:01 PM us Brooks Gonzalez MD ECG ORDERABLES Final Re sult [facility] documented in this encounter Visit Diagnoses Diagnosis Atrial flutter, unspecified type Atrial flutter, unspecified type- Primary documented in this encounter Additional Health Concerns Assessment Noted Time PHQ-2 Depression Total Score: 0 06/06/20 18 9:34 AM EST documented as of this encounter Care Teams Cashier Gambling Relationship Specialty Start Date End Date Simon Alcaraz MD 40 [place] [address] [email or web address] PCP - General Internal Medicine 06/13/17 Simon Alcaraz MD 40 [place] [address] [email or web address] Insurance Assigned Provider 10/29/23 Bj Carrillo MD [address] [facility] [address] [place] [address] Gastroenterology 06/09/20 Renetta Maria PA-C 30 [place] [address] [email or web address] Physician Correctional Captain Physician Correctional Captain 12/11/24 Raman Kumar MBBS 30 [place] [address] [email or web address] Primary Oncologist Internal Medicine 04/04/25 documented as of this encounter Additional Source Comments The information contained in this document represents components of the legal health record. It is not the complete legal health record[facility]
--- OUTSIDE RECORDS SUMMARY | 2025-04-17 12:11 | XMS_ITS | Clinical Summary ---
Author Organization [facility] Address [address] [place] [id number] Phone Care Team Providers Care Music Video Producer Name Role Phone Simon Alcaraz MD Primary Care Provider [phone] Simon Alcaraz MD Unavailable Bj Carrillo MD Unavailable Renetta Maria PA-C Unavailable [phone] Raman Kumar Unavailable Allergies Active Allergy Reactions Criticality Noted Date Comments Other 03/07/2018 Bee stings Sulfa (Sulfonamide Antibiotics) Hives 05/26 Sulfamethoxazole-Trimethoprim 2021 Medications FA/MV,CA,IRON,PA N/LYCOPENE/LUT (MULTIVITAL ORAL) daily. Active cholecalciferol, vitamin D3, 1,000 unit capsule 2000 untils per day Active melatonin 10 mg Cap Take 10 mg by mouth nightly at bedtime. Active testosterone cypionate (DEPO-TESTOTERON E) 200 mg/mL injection Inject 80 mg into the muscle. Once weekly 2 Active EPINEPHrine 0.3 mg/0.3 mL auto-injectorInd ications:Bee allergy status Inject 0.3 mL (0.3 mg total) into the muscle as needed for anaphylaxis. 1 each 4 3 Active valACYclovir (VALTREX) 500 MG tablet TAKE 1 TABLET BY MOUTH EVERY DAY 90 tablet 3 5 Active lisinopril (PRINIVIL,ZESTRI L) 30 MG tabletIndication s:Essential hypertension TAKE 1 TABLET BY MOUTH EVERY DAY 90 tablet 3 5 Active rosuvastatin (CRESTOR) 40 MG tablet TAKE 1 TABLET BY MOUTH EVERY DAY 90 tablet 5 5 Active clopidogrel (PLAVIX) 75 mg tabletIndication s:CAD in pe[place] artery TAKE 1 TABLET BY MOUTH EVERY DAY 90 tablet 3 5 Active DILT-XR 240 mg 24 hr capsuleIndicatio ns:Medication refill TAKE 1 CAPSULE BY MOUTH EVERY DAY 90 capsule 3 5 Active hydroCHLOROthiaz alina 25 MG tabletIndication s:Essential hypertension TAKE 1 TABLET (25 MG TOTAL) BY MOUTH DAILY. 90 tablet 3 5 Active fluticasone propionate (FLONASE) 50 mcg/actuation nasal sprayIndications :Allergic rhinitis, unspecified seasonality, unspecified trigger 2 sprays by Nasal route daily. 48 mL 4 5 Active BD LUER-LINCOLN SYRINGE 3 mL 23 x 1 Syrg 1 each every 7 days. 5 Active vardenafiL (LEVITRA) 20 MG tabletIndication s:Erectile dysfunction, unspecified erectile dysfunction type Take 1 tablet (20 mg total) by mouth daily as needed (erectile dysfunction) . 30 tablet 5 5 Active apixaban (ELIQUIS) 5 mg tablet Take 1 tablet (5 mg total) by mouth 2 (two) times a day. 180 tablet 5 5 Active methylPREDNISolo ne (MEDROL DOSEPACK) 4 mg tablet TAKE 6 TABLETS ON DAY 1 DIRECTED ON PACKAGE AND DECREASE BY 1 TAB EACH DAY FOR A TOTAL OF 6 DAYS 04/10/20 25 Discontinu ed(No longer taking) Active Problems Problem Noted Date Diagnosed Date Splenomegaly 11/14/2024 Assessment & Plan (04/10/2025 2:08 PM EDT): IMPRESSION: Mild transient splenomegaly -follow-up ultrasound from 04/02/2025 showed normal spleen. Patient has history of hepatitis C. Peripheral blood flow cytometry showing A small kappa light chain restricted B- cell population is detected that represents approximately <1% of the total analyzed events. The significance of this finding is uncertain. It does not necessarily indicate involvement by a lymphoproliferative disorder. Peripheral blood PCR for BCR-ABL was negative. Multiple myeloma screen was negative. Some additional CBCD abnormalities, intermittent erythrocytosis and monocytosis likely normal variant or reactive/secondary nature DISCUSSION: I discussed overall impression, differential diagnosis and further evaluation in this regard. Overall clinical picture is consistent with the above-mentioned impression. Follow-up ultrasound was unremarkable and I reassured him about this. No further radiological evaluation is necessary at this time in this regard. CBC continues to be stable and I reassured him about this. There is no indication for any additional diagnostic intervention like bone marrow aspiration and biopsy at this time. RECOMMENDATIONS: Continue surveillance on 6 monthly basis with CBCD for few years Return for follow-up in 6 months with labs Thank you very much for allowing me to participate in this patient's care Assessment & Plan (11/14/2024 9:50 AM EDT): IMPRESSION: This is a 74-year-old man with incidental finding of mild splenomegaly of unclear etiology, likely secondary to his history of hepatitis C. DISCUSSION: I discussed our impression, differential diagnosis and further evaluation in this regard. Overall clinical picture is consistent with the above-mentioned impression although it is important to rule out other etiologies. Recent CT scan of the abdomen and pelvis did not show any liver abnormalities. There was no evidence of any other lymphadenopathy concerning for lymphoproliferative disorder. Differential diagnosis for splenomegaly is quite broad including but not limited to infectious etiology, hematological disorders/malignancies, lymphoproliferative disorders and nonmalignant infiltrative disorders. CBC has been normal in the past so that is reassuring and rules out myeloproliferative neoplasms like polycythemia vera, primary myelofibrosis like diseases. He will undergo appropriate laboratory evaluation in this regard. I do not think that any additional imaging is indicated at this time. RECOMMENDATIONS: CBCD LDH Peripheral blood flow cytometry Peripheral blood PCR for BCR-ABL Multiple myeloma screen Follow-up in 4 to 5 weeks Thank you very much for allowing me to participate in this patient's care HEATHER positive 10/31/2024 Overview (10/31/2024): 1:160, speckled January 2024 ENAs negative June 2024 Assessment & Plan (10/31/2024 1:52 PM EDT): HEATHER is generally not indicated in workup of joint pain. There is no clinical evidence suggestive of underlying autoimmune connective tissue disease in this 74-year-old man. There is no current indication for further rheumatology specific workup or management. 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 Cerda. He has recurrent symptoms in the past week, work- related, and has appointment scheduled with Dr. Cerda for repeat injection. There is no evidence of underlying or comorbid inflammatory arthritis and therefore no indication for ongoing rheumatology specific management. Polyarthralgia 10/31/2024 Assessment & Plan (10/31/2024 1:58 PM EDT): Pattern and distribution of joint discomfort consistent with osteoarthritis involving predominantly the axial spine. He has significant benefit with current use of ibuprofen 600 mg, 2-3 times weekly. We discussed risks and benefits of regular use of oral NSAIDs, especially in the context of his history of cardiac disease and apixaban requirement. If he continues to derive significant benefit from occasional low dose ibuprofen use, the benefits likely outweigh the risks. If he does find himself needing more frequent dosing, he should follow-up with his PCP regarding discussion of duloxetine as an NSAID alternative. PAD (peripheral artery disease) 09/18/2024 Assessment & Plan (09/18/2024 9:26 AM EST): Continues to endorse some claudication with significant exertion, but this is not limiting him in any way. He continues to work as an RN, travel and walk. Continue clopidogrel. Continue to optimize cardiovascular risk factors and continue regular walking. Recent NARDA was unchanged and patient plans to repeat to this prior to his next follow-up with [facility] vascular surgery. He follows with Dr. Gomez. Allergic rhinitis 02/14/2024 Coronary artery disease invo lving peoria coronary artery of peoria heart without angina pectoris 09/30/2022 Assessment & Plan (09/18/2024 9:20 AM EST): Approximately 70% LAD stenosis which is medically managed. Patient denies any symptoms concerning for angina or heart failure. Nuclear stress test 03/2022 showed no ischemia with old myocardial infarction of inferoseptal wall. Continue medical therapy. Continue to optimize cardiovascular risk factors. Follow-up in 6 months. Paroxysmal atrial fibrillation 01/05/2021 Assessment & Plan (09/18/2024 9:27 AM EST): Status post atrial flutter ablation as well as history of atrial fibrillation with previous atrial fibrillation ablation 03/2021. Patient denies any clinical recurrence since his most recent ablation. He remains adequately anticoagulated on Eliquis 5 mg twice daily without any bleeding complaint. He is on diltiazem. Continue same. Is no longer on amiodarone. Assessment & Plan (11/26/2021 3:27 PM EDT): No further episodes of atrial fibrillation since his ablation. We will continue on Xarelto and diltiazem Assessment & Plan (06/26/2021 9:58 AM EST): He has had no further episodes of atrial fibrillation since his ablation procedure. We will stop amiodarone at this point and continue taking Xarelto and diltiazem. He will let us know if he has any recurrences Assessment & Plan (03/19/2021 8:32 AM EDT): We discussed that given his coronary artery disease and his rapidly changing EF, I noted that there are limited options from an atretic standpoint and the only medications that are available are entered next that require a 3-day hospital stay for him or amiodarone which I would not want to commit him to long-term. I also noted that unfortunate some of the medications that we could consider such as dofetilide interact with his current blood pressure meds which it is taken some time to get an accurate regimen. He is scheduled for an ablation next month and we discussed the risks of the procedure in the past. I will plan on decreasing his amiodarone to 100 mg once daily after his ablation which we will continue for 3 months. He will stay on Xarelto uninterrupted except for holding the morning of the procedure as he takes in the morning Assessment & Plan (01/05/2021 3:23 PM EDT): He now has documented atrial fibrillation. We discussed that for 30% of patients who have had typical atrial flutter, they do go on to having atrial fibrillation. He seems to be well rhythm controlled now on amiodarone. I discussed with him that amiodarone is a good short-term option but I would not continue this long-term. I offered him an ablation with a 1 to 4% risk of bleeding, infection, perforation, pulmonary vein damage, esophageal damage, stroke, heart attack and . I also noted that ablation is a 75 to 80% success rate in the setting of paroxysmal atrial fibrillation. He is agreed to the ablation and will continue on amiodarone until the procedure as well as 3 months afterwards. Arrhythmia 12/17/2020 Renal artery stenosis 12/17/2020 Assessment & Plan (09/18/2024 9:14 AM EST): Recent renal artery duplex 08/2024 shows moderate stenosis on the right and moderate to severe stenosis on the left, compared to prior, right side is similar and left side has progressed. Discussed with LA. Will repeat duplex in 6 months which has been ordered and follow-up with SW thereafter. Report also faxed to Dr. Gomez per patient request. Continue medical therapy. There was also an incidental finding of an enlarged spleen for which CT or MRI was recommended. Message has been sent to patient's PCP to make aware of this incidental finding. Patient is aware and we discussed this today. Patient will follow-up with Dr. Alcaraz. Nonischemic cardiomyopathy 05/31/2019 Assessment & Plan (09/18/2024 9:16 AM EST): Normalized after a flutter ablation. Most recent EF 60 to 65%. Assessment & Plan (11/26/2021 3:28 PM EDT): He is EF is completely normalized while maintaining normal sinus rhythm. He was down on lisinopril Assessment & Plan (06/26/2021 9:58 AM EST): Complete resolution of AF with rhythm control echocardiogram June 2020 showing normal EF Assessment & Plan (09/27/2019 8:44 AM EST): Nonischemic cardiomyopathy with significant improvement in EF. He has been switched from beta-evei to diltiazem. I would recommend a repeat echocardiogram in 3 to 6 months. If EF does not fully recover he should be changed back to beta-evie for cardiomyopathy purposes. Assessment & Plan (05/31/2019 9:47 AM EST): Nonischemic cardiomyopathy with EF 30 to 35% most likely tachycardia induced. We will repeat an echocardiogram around 6 to 8 weeks time. He is already on metoprolol and lisinopril. CAD in peoria artery 05/03/2019 Assessment & Plan (11/26/2021 3:28 PM EDT): He will follow-up with Dr. Youngblood after a stress test. His last stress test showed no perfusion defect and he has no chest pain or dyspnea Assessment & Plan (06/26/2021 9:58 AM EST): He does have coronary disease but Dr. Youngblood here felt this was out of proportion to his cardiomyopathy and his symptoms. He has not had any further chest pain since maintaining normal rhythm. I will have him follow-up and he will let us know if he starts getting chest pain again as he gets more active Assessment & Plan (03/19/2021 8:33 AM EDT): He does have LAD coronary calcification and coronary disease but he is not symptomatic and that she had a stress test did not show ischemia in this territory. He and Dr. Youngblood have elected to treat this medically. We will continue atorvastatin Assessment & Plan (01/05/2021 3:24 PM EDT): I suspect his chest discomfort was actually the atrial fibrillation that he was having. He will continue to be active and climbs stairs and walk and go back to exercising. If he notes any further chest discomfort at this point, he will let us know. He has known CAD with 70% LAD disease but has a negative stress test and was not having any chest discomfort until he had atrial fibrillation with an per Dr. Youngblood we will monitor him for further symptoms now that he is normal sinus rhythm Assessment & Plan (10/02/2020 2:01 PM EST): He continues to have rare episodes of chest pain though improved on the higher dose of diltiazem. I noted 1 option was to increase his diltiazem further to see if this prevents future symptoms. He prefers to stay on his current dose and says that if he continues to have episodes of exertional chest pain, he will reach out to as he was told on his recent clinic appointment that if this ends up becoming an ongoing issue, he can get a PCI to his LAD that has known disease. He has a scheduled follow-up appointment in 4 months Assessment & Plan (05/31/2019 9:48 AM EST): Coronary artery disease with a LAD lesion. He has seen Dr. Delacruz for it and I will have him follow-up with him in 3 months Hypogonadism in male 04/02/2019 Typical atrial flutter 04/02/2019 Assessment & Plan (09/18/2024 9:27 AM EST): Status post atrial flutter ablation as well as history of atrial fibrillation with previous atrial fibrillation ablation 03/2021. Patient denies any clinical recurrence since his most recent ablation. He remains adequately anticoagulated on Eliquis 5 mg twice daily without any bleeding complaint. He is on diltiazem. Is no longer on amiodarone. Continue same. Assessment & Plan (10/02/2020 2:00 PM EST): I discussed with him that atrial flutter ablation is a greater than 95% success rate given that he has had no recurrences since the ablation, he will likely not have them in the future. I noted that a small minority of patients after atrial flutter ablation do eventually have atrial fibrillation and I recommended he check his pulse once every 2 weeks to confirm it still regular and that his heart rate is not above 100 bpm. As long as he maintains normal rhythm, we do not need to start anticoagulation or do any further interventions Assessment & Plan (09/27/2019 8:43 AM EST): Status post ablation with no recurrences. Xarelto can be stopped he can only stay on aspirin 81 mg a day. Assessment & Plan (05/31/2019 9:47 AM EST): Status post ablation of typical CTI dependent right atrial flutter currently in sinus rhythm and feeling a lot better. Will reduce the metoprolol to 25 mg twice daily due to side effects. Palpitations 04/02/2019 Crushing injury of right thumb 03/30/2019 Assessment & Plan (03/30/2019 1:03 PM EDT): Right thumb with hematoma at nail base and under nail, swelling and inability to flex at the interphalangeal joint, denies numbness. There could be a crush injury accompanying the hematoma. Patient has atrial fibrillation but was adequate to hold off on the Xarelto, we will refer the patient to hand surgeon here in the office and for now put a splint on the thumb to protect it. It did not appear that the nail bed had to be drained immediately. Pain controlled with Tylenol. Sacroiliitis, not elsewhere classified 8 Myalgia 07/11/2018 Carpal tunnel syndrome 03/19/2018 Elevated prostate specific antigen (PSA) 018 Hyperlipidemia 03/19/2018 Assessment & Plan (09/18/2024 9:22 AM EST): Last year, atorvastatin was switched to rosuvastatin. LDL goal less than 70 due to comorbidities. LDL 57, at goal on rosuvastatin 40 mg daily which patient is tolerating well. Recent LFTs with minimal elevation of ALT 45, monitor this. Obstructive sleep apnea syndrome 03/19/2018 Lesion of ulnar nerve 03/19/2018 Essential hypertension 06/13/2017 Assessment & Plan (09/18/2024 9:18 AM EST): Adequately controlled in the office today 128 systolic my check. Continue current medications and doses. Labs up-to-date. Lifestyle modifications ongoing. Assessment & Plan (10/02/2020 2:00 PM EST): Blood pressure is currently well controlled on diltiazem, lisinopril, HCTZ. He notes it is very variable and elevated in the past but that is better now Tubular adenoma Resolved Problems Problem Noted Date Diagnosed Date Resolved Date Pain of right middle finger 02/14/2024 10/31/2024 Assessment & Plan (02/14/2024 3:31 PM EDT): Unclear etiology. On physical exam patient has pain over the DIP of the middle finger on the right hand. Positive edema no erythema positive warmth. No signs of abrasions or incisions. -Right hand x-ray to rule out fracture -Labs to include rheumatoid factor, HEATHER, CRP, sed rate, and Lyme Encounters Date Type Department Care Team Description 04/10/2025 2:00 PM EDT Telemedicine [facility] at [address] [address] Raman Kumar MBBS Splenomegaly (Primary Dx) 04/02/2025 3:10 PM EDT - 04/02/2025 11:59 PM EDT Hospital Encounter [facility] [address] [place] [address] Simon Alcaraz MD Discharge Disposition: Home or Self Care 04/02/2025 7:38 AM EDT - 04/02/2025 3:09 PM EDT Hospital Encounter [facility] [address] [place] [address] Simon Alcaraz MD Discharge Disposition: Home or Self Care 04/02/2025 7:00 AM EDT - 04/02/2025 7:37 AM EDT Hospital Encounter [address] [address] Renetta Maria PA-C Discharge Disposition: Home or Self Care 03/15/2025 1:40 PM EDT Office Visit [facility] [address] [place] [address] [address] Floor, [address] [place] [address] Tino Youngblood MD Renal artery stenosis (Primary Dx); Paroxysmal atrial fibrillation; Coronary artery disease involving peoria coronary artery of pe[place] heart without angina pectoris; PAD (peripheral artery disease); Pure hypercholesterolemia 02/26/2025 7:48 AM EDT - 02/26/2025 11:59 PM EDT Hospital Encounter [facility] [address] [place] [address] Maddi Mendoza, CATERINA Discharge Disposition: Home or Self Care 02/18/2025 Orders Only [facility] [address] [facility] [place] [address] Latosha Rosario MD 01/15/2025 Orders Only [facility] [address] [place] [address] ProviderLatosha MD from Last 3 Months Immunizations Immunization Administration Dates Next Due COVID-19 (Pre-05/16) Moderna Vaccine, mRNA, PF 08/28/2020,07/31/2020 Influenza High-Dose Quadriva lent Preservative Free IM 06/21/2023 Influenza High-Dose Trivalen t Preservative Free IM 06/08/2019 Influenza Quadrivalent Adjuv anted Preservative Free IM 06/12/2021 Influenza Quadrivalent Prese rvative Free IM 06/12/2021 Influenza, Unspecified Formulation 06/05,06/03/2022,05/12/2020,05/25 Pneumococcal conjugate PCV13 11/24/2015 Pneumococcal polysaccharide PPSV23 04/11/2014 RSV Vaccine (bivalent) 06/10/2024 Tdap 06/11/2016 Zoster live 06/30/2013 Zoster recombinant 10/05/2021,06/12/2021 Family History Medical History Relation Comments Atrial fibrillation Brother Relation Status Comments Brother Social History Tobacco Use Types Packs/Day Years Used Date Smoking Tobacco: Former Cigarettes Q uit: 1986 Smokeless Tobacco: Never Tobacco Cessation:Counseling Given: Not Answered Alcohol Use Standard Drinks/Week Comments Yes 1 (1 standard drink = 0.6 oz pure alcohol) 1-2 drinks a week either liquor or wine Child or Family Care Answer Date Record ed Do you have problems with on e of the following making it difficult for you to work, study, or receive health care? No 06/19/2024 Education Answer Date Recorded Are you interested in more education? Not on jon e 12/08/2022 Are you concerned about learning? Not on file 12/08/2022 No 12/08/2022 No 12/08/2022 Food Answer Date Recorded Within the past 6 months we worried whether our food would run out before we got money to buy more. Never True 06/19/2024 Within the past 6 months the food we bought just didn't last and we didn't have enough money to get more. Never True Residential Stability Answer Date Recor ded What is your housing situation today? I have henrik sing 06/19/2024 How many times have you move d in the past 12 months? Zero (I did not move) 06/19/2024 Paying for Meds Answer Date Recorded Do you have trouble paying for medicines? No 06/19/2024 Paying Utility Bills Answer Date Record ed Do you have trouble paying your heating or elect ricity bill? No 06/19/2024 Transportation Answer Date Recorded Has the lack of transportati on kept you from medical appointments or from getting medications? No 06/19/2024 Unemployment Answer Date Recorded Are you currently unemployed or working on a part-time or temporary basis, and looking for work? I choose not to answer 12/07/2020 Digital Access Answer Date Recorded No 06/19/2024 Yes 06/19/2024 Do you have reliable internet access at home? Ye s 06/19/2024 Do you have a device (e.g., phone, tablet, computer) with a working camera? I choose not to answer 06/19/2024 Intimate Partner Violence Answer Date R ecorded Denied Basic Needs Not on file 06/19/2024 In the past 12 months have y ou been in a relationship with a person who hurts, threatens, or tries to control you? No 06/19/2024 Worried food would run out Not on file 06/19 In the past 12 months have y ou been in a relationship with a person who hurts, threatens, or tries to control you? No 06/19/2024 Sex and Gender Information Value Date Recorded Sex Assigned at Not on file Legal Sex Male 10:04 PM EDT Gender Identity Not on file Sexual Orientation Not on file Last Filed Vital Signs Vital Sign Reading Time Taken Comments Blood Pressure 124/78 03/15/2025 1:40 PM EDT Pulse 74 03/15/2025 1:40 PM EDT Temperature 36.6 C (97.8 F) 12/25/2024 12:55 PM EDT Respiratory Rate 16 12/25/2024 12:55 PM EDT Oxygen Saturation 98% 03/15/2025 1:40 PM EDT Inhaled Oxygen Concentration - - Weight 90.7 kg (200 lb) 03/15/2025 1:40 PM EDT Height 169.2 cm (5' 6.61 ) 03/15/2025 1:40 PM ED T Body Mass Index 31.69 03/15/2025 1:40 PM EDT Plan of Treatment Upcoming Encounters Date Type Department Care Team (Latest Contact Info) Description 07/22/2025 4:00 PM EST Office Visit [facility] [address] [place] [address] Simon Alcaraz MD [address] [place] [id number] 09/20/2025 1:00 PM EST Ancillary Procedure [facility] [address] [place] [address] [address] Floor, [address] [place] [id number] Tino Youngblood MD [address] [place] [address], [address] [id number] [email or web address] 12/25/2025 1:00 PM EDT Office Visit [facility] [address] [place] [address] Simon Alcaraz MD [address] [place], [place] [phone] Health Maintenance Due Date Last Done Comments HEPATITIS C SCREENING 1967 COLOGUARD 1994 FIT TEST 1994 FOBT 1994 SIGMOIDOSCOPY 1994 VIRTUAL COLONOSCOPY 1994 INFLUENZA VACCINE (#1) 2025 , 06/21/2023, 06/21/2023, Additional history exists COVID-19 VACCINE ( season) 2025 05/29/2021, 08/28/2020, 07/31/2020 DEPRESSION SCREENING 06/19/2025 06/19/2024 BLOOD PRESSURE 09/15/2025 03/15/2025 SMOKING Hx and SMOKELESS TOBACCO SCREENING 03/15/2026 03/15/2025 CREATININE LEVEL 04/02/2026 04/02/2025, 09/2024, 07/13/2024, Additional history exists POTASSIUM LEVEL 04/02/2026 04/02/2025, 06/25, 03/01/2024, Additional history exists Adult Td,Tdap Booster 06/11/2026 06/11/2016 COLONOSCOPY 02/13/2030 02/13/2025, 03/08/2019, 03/13/2014 COLORECTAL CANCER SCREENING 02/13/2030 PNEUMOCOCCAL VACCINES (50+ years) Completed 11/24/2015, 04/11/2014 ZOSTER VACCINES Completed 10/05/2021, 05/25, 06/30/2013 RSV VACCINE Completed 06/10/2024 HEPATITIS A VACCINES Aged Out No long er eligible based on patient's age to complete this topic HIB VACCINES Aged Out No longer eligi ble based on patient's age to complete this topic MENINGOCOCCAL VACCINES (ACWY) Aged Out No longer eligible based on patient's age to complete this topic MENINGOCOCCAL VACCINES (B) Aged Out N o longer eligible based on patient's age to complete this topic Medical Devices Implanted Type Area Jewelry Bearing Maker Device Identifier Shelf Expiration Date Model / Serial / Lot Lens Lens Stent Vascular 7mm 100mm 135cm .035in Otw Nickel Titanium Self-Expanding External Iliac Artery Tri Axial Radiopaque Marker Sterile Disp Absolute Pro - [id number] Implanted:Qty: 1 on 09/30/2022 by Tino Youngblood MD at [facility] Stent Arterial OneBuild [id number] 06/23/2024 [id number] / / Description:Right SFA Procedures Procedure Name Priority Date/Time Associated Diagnosis Comments URINE SEDIMENT Routine 04/02/2025 12:00 PM EDT URINALYSIS Routine 04/02/2025 12:00 PM EDT Essential hypertension Impaired fasting blood sugar Pure hypercholesterolemia Screening for prostate cancer Splenomegaly Polyarthralgia Trigger finger, right middle finger HEATHER positive PAD (peripheral artery disease) Allergic rhinitis, unspecified seasonality, unspecified trigger Coronary artery disease involving peoria coronary artery of peoria heart without angina pectoris Paroxysmal atrial fibrillation Renal artery stenosis Tubular adenoma Nonischemic cardiomyopathy CAD in peoria artery Palpitations Typical atrial flutter Hypogonadism in male Crushing injury of right thumb, initial encounter Myalgia Sacroiliitis, not elsewhere classified Obstructive sleep apnea syndrome Elevated prostate specific antigen (PSA) US ABDOMEN COMPLETE (ADULT) Routine 04/02/2025 7:52 AM EDT Splenomegaly CBC AND DIFFERENTIAL Routine 04/02/2025 7:40 AM EDT Splenomegaly PSA (SCREENING) Routine 04/02/2025 7:40 AM EDT Screening for prostate cancer LIPID PANEL Routine 04/02/2025 7:40 AM EDT Pure hypercholesterolemia COMPREHENSIVE METABOLIC PANEL Routine 04/02/2025 7:40 AM EDT Essential hypertension Impaired fasting blood sugar HEMOGLOBIN A1C Routine 04/02/2025 7:40 AM EDT Impaired fasting blood sugar US RENAL ARTERIES AND VEINS DUPLEX COMPLETE Routine 02/26/2025 8:29 AM EDT Renal artery atherosclerosis COLONOSCOPY FOR RESULT ENTRY ONLY Routine 02/13/2025 12:52 PM EDT OUTSIDE IMAGING Routine 01/15/2025 1:35 PM EDT from Last 3 Months Results * (ABNORMAL) Urine sediment (04/02/2025 12:00 PM EDT) WBC 5-10(A) NONE SEEN /hpf RBC 0-2(A) NONE SEEN /hpf URINE EPITHELIAL NONE SEEN NONE SEEN MUCUS 2+(A) NONE SEEN /hpf BACTERIA NONE SEEN NONE SEEN /hpf 04/02/2025 12:0 0 PM EDT 04/02/2025 3:12 PM EDT Simon Alcaraz MD URINE ORDERABLES Final Result Performing Organization Address [facility] de Phone Number [address] [address] * (ABNORMAL) Urinalysis (04/02/2025 12:00 PM EDT) COLOR Yellow Yellow CLARITY Clear GLUCOSE Negative Negative BILI Negative Negative KETONES Negative Negative SPECIFIC GRAVITY 1.015 1.005 - 1.030 BLOOD Negative Negative PH 6.5 5.0 - 8.0 Protein-UA 1+(A) Negative NITRITE Negative Negative Leukocyte esterase, ur Negative Negative Urine (Urine) 04/02/2025 12: 00 PM EDT 04/02/2025 3:12 PM EDT Simon Alcaraz MD URINE ORDERABLES Final Result Performing Organization Address [facility] de Phone Number [address] [address] * US ABDOMEN COMPLETE (ADULT) (04/02/2025 7:52 AM EDT) Anatomical Region Laterality Modality Abdomen Ultrasound 04/02/2025 10:0 0 AM EDT Impressions 04/02/2025 10:04 AM EDT 1. Resolved splenomegaly. 2. Suggestion of mild fatty liver. Narrative 04/02/2025 10:04 AM EDT US ABDOMEN COMPLETE (ADULT) Referring clinician's provided indication for this examination in Epic: Splenomegaly; please compare spleen size to prior abd CT 09/28 TECHNIQUE: Abdominal Ultrasound Complete. COMPARISON: CT ABDOMEN WITH CONTRAST FINDINGS: Liver: Slightly echogenic liver suggesting fatty liver. No focal lesions. Main Portal Vein: Patent with normal direction of flow. Gallbladder: Normal. No gallstones or gallbladder wall thickening. Peres's Sign: Negative. Biliary: Normal. No intrahepatic or extrahepatic biliary ductal dilatation. The common bile duct measures 4 mm. Pancreas: Incompletely visualized. Spleen: By my remeasurement, 15.8 cm on 09/28/2024, now measuring 12.6 cm. Kidneys: Normal. No stones or hydronephrosis. Aorta: Normal, where visualized sonographically. IVC: Normal intrahepatic segment. Procedure Note Carolina Allen MD - 04/02/2025 US ABDOMEN COMPLETE (ADULT) Referring clinician's provided indication for this examination in Epic:Splenomegaly; please compare spleen size to prior abd CT 09/28 TECHNIQUE: Abdominal Ultrasound Complete. COMPARISON: CT ABDOMEN WITH CONTRAST FINDINGS: Liver: Slightly echogenic liver suggesting fatty liver. No focallesions. Main Portal Vein: Patent with normal direction of flow. Gallbladder: Normal. No gallstones or gallbladder wall thickening. Peres's Sign: Negative. Biliary: Normal. No intrahepatic or extrahepatic biliary ductaldilatation. The common bile duct measures 4 mm. Pancreas: Incompletely visualized. Spleen: By my remeasurement, 15.8 cm on 09/28/2024, now measuring 12.6 cm. Kidneys: Normal. No stones or hydronephrosis. Aorta: Normal, where visualized sonographically. IVC: Normal intrahepatic segment. IMPRESSION: 1. Resolved splenomegaly. 2. Suggestion of mild fatty liver. us Renetta Maria PA-C IM US ABDOMEN Final Resu lt * (ABNORMAL) Comprehensive metabolic panel (04/02/2025 7:40 AM EDT) SODIUM 137 133 - 146 mmol/L POTASSIUM 4.5 3.3 - 5.1 mmol/L Comment:Specimen slightly he molyzed, result may be falsely elevated. CHLORIDE 99 96 - 108 mmol/L CO2 27 21 - 35 mmol/L BUN 33(H) 6 - 19 mg/dL CREATININE 1.00 0.5 - 1.5 mg/dL GLUCOSE 107(H) 70 - 99 mg/dL ALBUMIN 4.2 3.9 - 4.8 g/dL TOTAL PROTEIN 6.6 6.5 - 8.0 g/dL CALCIUM 10.3 8.4 - 10.3 mg/dL ALKALINE PHOSPHATASE 79 39 - 117 U/L TOTAL BILIRUBIN 0.7 0.0 - 1.2 mg/dL AST 22 0 - 37 U/L ALT 33 0 - 40 U/L GLOBULIN 2.4 1 - 4.8 g/dL EGFR 78 >59 mL/min/1.7 3m2 Comment:Estimated glomerular filtration rate calculated using the CKD-EPI refit equation. ANION GAP 16 10 - 20 mmol/L Blood 04/02/2025 7:40 AM EDT 04/02/2025 8:36 AM EDT us Simon Alcaraz MD LAB BLOOD ORDERABLES Final Re sult [address] [place] [address] * (ABNORMAL) CBC and differential (04/02/2025 7:40 AM EDT) WBC 8.33 4.00 - 11.00 K/uL RBC 5.56 4.50 - 5.90 M/uL HGB 17.8(H) 13.5 - 17.5 g/dL HCT 52.0 41.0 - 53.0 % PLT 169 150 - 450 K/uL MCV 93.5 80.0 - 100.0 fL MCH 32.0(H) 27.0 - 31.0 pg MCHC 34.2 32.0 - 36.0 g/dL RDW 12.9 11.5 - 14.5 % MPV 9.9 8.4 - 12.0 fL NRBC 0.00 0.00 /100 WBCs ABSOLUTE NRBC 0.00 0.00 K/uL DIFF METHOD Auto NEUTS 60.0 48.0 - 76.0 % LYMPHS 14.8(L) 18.0 - 41.0 % MONOS 19.4(H) 4.0 - 11.0 % EOS 1.7 0.0 - 5.0 % BASOS 0.6 0.0 - 1.5 % Granulocytes, immature (%) 3.5(H) 0.0 - 0.9 % ABSOLUTE NEUTS 5.00 1.92 - 7.60 K/uL ABSOLUTE LYMPHS 1.23 0.72 - 4.10 K/uL ABSOLUTE MONOS 1.62(H) 0.16 - 1.10 K/uL ABSOLUTE EOS 0.14 0.00 - 0.50 K/uL ABSOLUTE BASOS 0.05 0.00 - 0.15 K/uL Granulocytes, immature 0.29(H) 0.00 - 0.09 K/uL Blood 04/02/2025 7:40 AM EDT 04/02/2025 8:36 AM EDT us Renetta Maria PA-C LAB BLOOD ORDERABLES Final Result [address] [address] * PSA (screening) (04/02/2025 7:40 AM EDT) PSA 1.96 0 - 4.00 ng/mL Comment: Test Methodology Coby e801 Patient results determined by assays using different manufacturers or methods may not be comparable. Blood 04/02/2025 7:40 AM EDT 04/02/2025 9:56 AM EDT Simon Alcaraz MD LAB BLOOD ORDERABLES Final Re sult Performing Organization Address [facility] Co de Phone Number [address] [address] * (ABNORMAL) Hemoglobin A1c (04/02/2025 7:40 AM EDT) HEMOGLOBIN A1C 6.6(H) 4.3 - 5.8 % Blood 04/02/2025 7:40 AM EDT 04/02/2025 10:09 AM EDT Simon Alcaraz MD LAB BLOOD ORDERABLES Final Re sult Performing Organization Address [facility] Co de Phone Number [address] [address] * (ABNORMAL) Lipid panel (04/02/2025 7:40 AM EDT) HDL 49 mg/dL Comment: Interpretation <40 mg/dL: Low HDL cholesterol (major risk factor for CHD) Greater than or equal to 60 mg/dL: High HDL cholesterol ( negative risk factor for CHD) HDL - cholesterol is affected by a number of factors, e.g. smoking, excerise, hormones, sex and age. CHOLESTEROL 137 0 - 240 mg/dL TRIGLYCERIDES 160 30 - 160 mg/dL LDL 56 50 - 129 mg/dL Comment: LDL levels in terms of risk for coronary heart disease: <100 mg/dL: Optimal 100-129 mg/dL: Near or above optimal 130-159 mg/dL: Borderline high 160-189 mg/dL: High >190 mg/dL: Very High CARDIAC RISK RATIO 2.8(L) 3.4 - 5.0 [facility] Blood 04/02/2025 7:40 AM EDT 04/02/2025 9:48 AM EDT us Simon Alcaraz MD LAB BLOOD ORDERABLES Final Re sult [address] [place] [address] * US RENAL ARTERIES AND VEINS DUPLEX COMPLETE (02/26/2025 8:29 AM EDT) Height 169 cm Weight 90 kg Suprarenal Abdominal Aorta 76.00 cm/sec Kidney 11.50 cm Intratenal Resistive Index Upper Pole 0.68 Mid Intratenal Resistive Indexdle Pole 0.69 Intratenal Resistive Index Lower Pole 0.68 Renal Artery Origin 139.00 cm/sec RA/ AO 2.24 Prox Renal Artery 170.00 cm/sec Mid Renal Artery 117.00 cm/sec Dist Renal Arteryal 115.00 cm/sec Kidney 11.50 cm Intratenal Resistive Index Upper Pole 0.68 Mid Intratenal Resistive Indexdle Pole 0.77 Intratenal Resistive Index Lower Pole 0.76 Renal Artery Origin 53.00 cm/sec RA/ AO 5.00 Prox Renal Artery 380.00 cm/sec Mid Renal Artery 375.00 cm/sec Dist Renal Arteryal 183.00 cm/sec Anatomical Region Laterality Modality Abdominal Vasculature Ultrasound Narrative 02/26/2025 9:13 AM EDT Impression: Right Kidney: The Right Kidney measures 11.5 cm. This is normal. Right renal/aortic ratio is 2.24. Right renal/aortic ratio is less than 3.5. Right renal artery less than 60% stenosis. Right Renal Vein is patent by color flow. Left Kidney: The Left Kidney measures 11.5 cm. This is normal. Left renal/aortic ratio is 5. Left renal/aortic ratio is greater than 3.5. Velocities are elevated. Left renal artery greater than 60% stenosis. Left Renal Vein is patent by color flow. Compared to the prior exam of 08/2024. Left Renal/Aortic Ratio has increased. Renal Ultrasound Right RIGHT KIDNEY Renal vein: patent RENAL ARTERY Stenosis: no significant stenosis Proximal stenosis: no significant stenosis Mid stenosis: no significant stenosis Distal stenosis: no significant stenosis Renal Ultrasound Left LEFT KIDNEY Renal vein: patent RENAL ARTERY Stenosis: no significant stenosis Findings: elevated Proximal stenosis: >60% Mid stenosis: >60% Distal stenosis: no significant stenosis us Maddi Mendoza PA-C IMG US ABDOMEN Final Result * HM COLONOSCOPY FOR RESULT ENTRY ONLY (02/13/2025 12:52 PM EDT) Historical Provider HEALTH MAINTENANCE Final Result * Outside Imaging Report Only (01/15/2025 1:35 PM EDT) Historical Provider IMG XR CHEST Final Res ult from Last 3 Months Insurance MEDICARE PART A & B [facility] MEDICARE SUPPLEMENT [facility] Address: [address] [address] MEDICARE PART A & B Member Subscriber Plan / Payer ( fective 2014-Present) Name:Minesh Terrell Member ID:[id number] Relation to Subscriber:Self Name:Minesh Terrell Subscriber ID:[id number] Payer ID:[id number] Group ID:Not on file Type:Medicare Address: [employer] [address] [place] [id number] [place] [address] EXTENSION MEDICARE SUPPLEMENT MEDICARE PART A & B [facility] [employer] MEDICARE SUPPLEMENT MEDICARE PART A & B [employer] MEDICARE SUPPLEMENT MEDICARE PART A & B [employer] MEDICARE SUPPLEMENT MEDICARE PART A & B [employer] MEDICARE SUPPLEMENT MEDICARE PART A & B [employer] MEDICARE SUPPLEMENT MEDICARE PART A & B [facility] MEDICARE SUPPLEMENT MEDICARE PART A & B [facility] [employer] MEDICARE SUPPLEMENT Care Teams Music Video Producer Relationship Specialty Start Date End Date Simon Alcaraz MD [address] [place] [address] PCP - General Internal Medicine 06/13/17 Simon Alcaraz MD [address] [place] [address] Insurance Assigned Provider 10/29/23 Bj Carrillo MD [address] [facility] [address] [place] [address] [phone] Gastroenterology 06/09/20 Renetta Maria PA-C [address] [place] [address] Physician Project Geologist Physician Project Geologist 12/11/24 Raman Kumar MBBS [address] [place] [address] [email or web address] Primary Oncologist Internal Medicine 04/04/25 Additional Source Comments The information contained in this document represents components of the legal health record. It is not the complete legal health record.[facility]
--- OUTSIDE RECORDS SUMMARY | 2025-04-17 12:11 | XMS_ITS | Patient Health Record ---
[facility] [place] Address [address] [place] [address] Care Team Providers Care Commodity Buyer Name Role Phone Simon Alcaraz MD Primary Care Provider Narayan Izquierdo Unavailable [phone] Allergies Allergen (clinical drug ingredient) Drug/Non Drug [...] (1999) 1 tablet Oral ly Once a day; Duration: 30 day(s) Active Testosterone Active Aspirin 81 81 MG 1 tablet Orally Once a day; Duration: 30 day(s) Active Lipitor 40 MG 1 tablet Orally Once a day; Duration: 30 day(s) Active valACYclovir HCl 500 MG 1 tablet Orally Once a day; Duration: 10 day(s) Active Lisinopril 10 MG 1 tablet Orally Once a day; Duration: 30 day(s) Active Dilt-XR 180 MG 1 capsule Orally Onc e a day; Duration: 30 day(s) Active Social History Tobacco Use: [...] Status Risk Notes Problem Plantar fascial fibromatosis (22915035) Plantar fascial fibromatosis (M72.2) Active confirmed Plan Of Treatment No Information Insurance Providers Payer Name Payer Address Payer Phone Subscriber Number Group Number Insured Name Patient Relationship to Insured Coverage Start Date Coverage End Date Medicare National Govt [employer] [address] [place] [address] [id number] Minesh Terrell Self - patient is the insured [employer] [address] [place] [address] [phone] [id number] Minesh Terrell Self - patient is the insured Medical (General) History Medical History History ICD Code Arthritis Back,Hip,and Knee pain Cancer Heart disease Atrial fibrillation High blood pressure Measles Mumps Chicken pox CAD Surgical History Surgery Date(Month/Year) Hernia Repair 04/2018 basal cell removal 07/2018 cataract surgery 01/29 2019 Ablation 04/2019
--- OUTSIDE RECORDS SUMMARY | 2025-04-17 12:11 | XMS_ITS | Encounter Summary ---
Author Organization [facility] Address [address] [place] [address] Phone Care Team Providers Care Telecom Coordinator Name Role Phone Simon Alcaraz MD Primary Care Provider [phone] Simon Alcaraz MD Unavailable [phone] Bj Carrillo MD Unavailable [phone] Renetta Maria PA-C Unavailable [phone] Raman Kumar Unavailable [phone] Encounter Details Date Type Department Care Team (Late st Contact Info) Description 04/20/2019 Procedure Pass [facility] [address] [place], [place] [phone] Social History Tobacco Use Types Packs/Day Years [...] 07/22/2025 4:00 PM EST Office Visit [facility] Internal Medicine [address] [place], [place] [phone] Simon Alcaraz MD [address] [place], [place] [phone] 09/20/2025 1:00 PM EST Ancillary Procedure [facility] [address] [facility] [address] Floor, [address] [place] [address] Tino Youngblood MD [address] [facility], [address] [place] [address] [email or web address] 12/25/2025 1:00 PM EDT Office Visit [facility] Internal Medicine [address] [place] [address] Simon Alcaraz MD [address] [place] [address] documented as of this encounter Visit Diagnoses Not on filedocumented in this encounter Additional Health Concerns Assessment Noted Time PHQ-2 Depression Total Score: 0 06/06/20 18 9:34 AM EST documented as of this encounter Care Teams Telecom Coordinator Relationship Specialty Start Date End Date Simon Alcaraz MD [address] [place] [address] PCP - General Internal Medicine 06/13/17 Simon Alcaraz MD [address] [place] [address] Insurance Assigned Provider 10/29/23 Bj Carrillo MD [address] [place] [address] [place] [address] Gastroenterology 06/09/20 Renetta Maria PA-C [address] [place] [address] [email or web address] Physician Gun Club Manager Physician Gun Club Manager 12/11/24 Raman Kumar MBBS [address] [place] [address] [email or web address] Primary Oncologist Internal Medicine 04/04/25 documented as of this encounter Additional Source Comments The information contained in this document represents components of the legal health record. It is not the complete legal health record.[facility]
--- OUTSIDE RECORDS SUMMARY | 2025-04-17 12:12 | XMS_ITS | Encounter Summary ---
Author Organization [facility] Address [address] [place] [address] [place] [address] Phone Care Team Providers Care Mva Operator Name Role Phone Simon Alcaraz MD Primary Care Provider Simon Alcaraz MD Unavailable Bj Carrillo MD Unavailable [phone] Renetta Maria PA-C Unavailable [phone] Raman Kumar Unavailable [phone] Encounter Details Date Type Department Care Team (Late st Contact Info) Description 03/05/2024 Procedure Pass [facility] [place] [phone] Social History Tobacco Use Types Packs/Day Years Used Date Smoking Tobacco: Former Cigarettes Q uit: 1987 Smokeless Tobacco: Never Alcohol Use Standard Drinks/Week Comments Yes 1 (1 standard drink = 0.6 oz pure alcohol) 1-2 drinks a week either liquor or wine Child or Family Care Answer Date Record ed Do you have problems with on e of the following making it difficult for you to work, study, or receive health care? I choose not to answer 12/07/2020 Education Answer Date Recorded Are you interested in more education? Not on jon e 12/08/2022 Are you concerned about learning? Not on file 12/08/2022 No 12/08/2022 No 12/08/2022 Food Answer Date Recorded Within the past 6 months we worried whether our food would run out before we got money to buy more. Never True 12/07/2020 Within the past 6 months the food we bought just didn't last and we didn't have enough money to get more. Never True Paying for Meds Answer Date Recorded Do you have trouble paying for medicines? I jluis se not to answer 12/07/2020 Paying Utility Bills Answer Date Record ed Do you have trouble paying your heating or elect ricity bill? No 12/07/2020 Transportation Answer Date Recorded Has the lack of transportati on kept you from medical appointments or from getting medications? No 12/07/2020 Unemployment Answer Date Recorded Are you currently unemployed or working on a part-time or temporary basis, and looking for work? I choose not to answer 12/07/2020 Digital Access Answer Date Recorded No 12/18/2022 No 12/18/2022 Reliable internet access at home? Not on file 12/18/2022 Device with a working camera? Not on file Sex and Gender Information Value Date Recorded Sex Assigned at Not on file Legal Sex Male 10:04 PM EDT Gender Identity Not on file Sexual Orientation Not on file documented as of this encounter Plan of Treatment Upcoming Encounters Date Type Department Care Team (Latest Contact Info) Description 07/22/2025 4:00 PM EST Office Visit [facility] Internal Medicine [address] [place] [address] Simon Alcaraz MD [address] [place] [address] 09/20/2025 1:00 PM EST Ancillary Procedure [facility] [address] [facility] 3rd Floor, [address] [place], [place] [phone] Tino Youngblood MD [address] [facility], [address] [place] [address] [email or web address] 12/25/2025 1:00 PM EDT Office Visit [facility] Internal Medicine [address] [place] [address] Simon Alcaraz MD [address] [place] [address] documented as of this encounter Visit Diagnoses Not on filedocumented in this encounter Additional Health Concerns Assessment Noted Time PHQ-2 Depression Total Score: 0 06/19/20 24 8:38 PM EST documented as of this encounter Care Teams Mva Operator Relationship Specialty Start Date End Date Simon Alcaraz MD [address] [place] [address] PCP - General Internal Medicine 06/13/17 Simon Alcaraz MD [address] [place] [address] Insurance Assigned Provider 10/29/23 Bj Carrillo MD [address] [place] [address] Drive [address] [place] [address] Gastroenterology 06/09/20 Renetta Maria PA-C [address] [place] [address] Physician Autocad Technician Physician Autocad Technician 12/11/24 Raman Kumar MBBS [address] [place] [id number] [email or web address] Primary Oncologist Internal Medicine 04/04/25 documented as of this encounter Additional Source Comments The information contained in this document represents components of the legal health record. It is not the complete legal health record.[facility]
--- OUTSIDE RECORDS SUMMARY | 2025-04-17 12:12 | XMS_ITS | Encounter Summary ---
Author Organization [facility] Address [address] [place] [address] Phone Care Team Providers Care Yoker Machine Operator Name Role Phone Simon Alcaraz MD Primary Care Provider [phone] Simon Alcaraz MD Unavailable [phone] Bj Carrillo MD Unavailable [phone] Renetta Maria PA-C Unavailable [phone] Raman Kumar Unavailable [phone] Encounter Details Date Type Department Care Team (Late st Contact Info) Description 06/07/2020 Procedure [facility] [address] [place] [address] Social History Tobacco Use Types Packs/Day Years [...] 07/22/2025 4:00 PM EST Office Visit [facility] [address] [place], [place] [phone] Simon Alcaraz MD [address] [place], [place] [phone] 09/20/2025 1:00 PM EST Ancillary Procedure [facility] [address] [facility] 3rd Floor, [address] [place] [address] Tino Youngblood MD [address] [facility], [address] [place] [address] [email or web address] 12/25/2025 1:00 PM EDT Office Visit [facility] Internal Medicine [address] [place] [address] Simon Alcaraz MD 40 [place] [address] documented as of this encounter Visit Diagnoses Not on filedocumented in this encounter Additional Health Concerns Assessment Noted Time PHQ-2 Depression Total Score: 0 06/08/20 19 3:58 PM EST documented as of this encounter Care Teams Yoker Machine Operator Relationship Specialty Start Date End Date Simon Alcaraz MD [address] [place] [address] PCP - General Internal Medicine 06/13/17 Simon Alcaraz MD [address] [place] [address] Insurance Assigned Provider 10/29/23 Bj Carrillo MD [address] [place] [address] [address] [place] [address] Gastroenterology 06/09/20 Renetta Maria PA-C [address] [place] [address] [email or web address] Physician Cut Tobacco Bulker Physician Cut Tobacco Bulker 12/11/24 Raman Kumar MBBS [address] [place] [address] [email or web address] Primary Oncologist Internal Medicine 04/04/25 documented as of this encounter Additional Source Comments The information contained in this document represents components of the legal health record. It is not the complete legal health record.[facility]
--- OUTSIDE RECORDS SUMMARY | 2025-04-17 12:12 | XMS_ITS | Encounter Summary ---
Author Organization [facility] Address [address] [place] [address] Care Team Providers Care Bee Robber Name Role Phone Simon Alcaraz MD Primary Care Provider [phone] Encounter Details Date Type Department Care Team (Late st Contact Info) Description 05/10/2019 Scanned Document GENERIC EXTERNAL DATA DEPARTMENT Shruti Luis MD [facility] [address] [place] Social History Tobacco Use Types Packs/Day Years Used Date Smoking Tobacco: Never Assessed Sex and Gender Information Value Date Recorded Sex Assigned at Not on file Legal Sex Male 2:29 PM EDT Gender Identity Not on file Sexual Orientation Not on file documented as of this encounter Plan of Treatment Not on file documented as of this encounter Visit Diagnoses Not on filedocumented in this encounter Care Teams Bee Robber Relationship Specialty Start Date End Date Simon Alcaraz MD [address] [place] [address] PCP - General 05/10/19 documented as of this encounter
--- OUTSIDE RECORDS SUMMARY | 2025-04-17 12:12 | XMS_ITS | Encounter Summary ---
Author Organization [facility] Address [address] [place] [address] [place] [address] Phone Care Team Providers Care Fiberglass Grinder Name Role Phone Simon Alcaraz MD Primary Care Provider [phone] Simon Alcaraz MD Unavailable [phone] Bj Carrillo MD Unavailable [phone] Renetta Maria PA-C Unavailable [phone] Raman Kumar Unavailable [phone] Encounter Details Date Type Department Care Team (Late st Contact Info) Description 09/30/2022 Procedure Pass [facility] [address] [place] [address] Social History Tobacco Use Types Packs/Day Years Used Date Smoking Tobacco: Former Cigarettes Q uit: 1987 Smokeless Tobacco: Never Alcohol Use Standard Drinks/Week Comments Yes 0 (1 standard drink = 0.6 oz pur e alcohol) 3 or 4 drinks a week Child or Family Care Answer Date Record ed Do you have problems with on e of the following making it difficult for you to work, study, or receive health care? I choose not to answer 12/07/2020 Education Answer Date Recorded Are you interested in help w ith more adult education (for example, completing high school, GED, job training, learning the Romanian language, technical skills, or developing parenting skills)? I choose not to answer 12/07/2020 Food Answer Date Recorded Within the past [...] work? I choose not to answer 12/07/2020 Sex and Gender Information Value Date Recorded Sex Assigned at Not on file Legal Sex Male 10:04 PM EDT Gender Identity Not on file Sexual Orientation Not on file documented as of this encounter Plan of Treatment Upcoming Encounters Date Type Department Care Team (Latest Contact Info) Description 07/22/2025 4:00 PM EST Office Visit [facility] Internal Medicine [address] [place], [place] [phone] Simon Alcaraz MD [address] [place], [place] [phone] 09/20/2025 1:00 PM EST Ancillary Procedure [facility] [address] [place] [address] 3rd Floor, [address] [place] [phone] Tino Youngblood MD [address] [place] [address] [phone] [email or web address] 12/25/2025 1:00 PM EDT Office Visit [facility] [address] [place], [place] [phone] Simon Alcaraz MD [address] [place], [place] [phone] documented as of this encounter Visit Diagnoses Not on filedocumented in this encounter Additional Health Concerns Assessment Noted Time PHQ-2 Depression Total Score: 0 06/14/20 22 8:06 AM EST documented as of this encounter Care Teams Fiberglass Grinder Relationship Specialty Start Date End Date Simon Alcaraz MD [address] [place] [address] PCP - General Internal Medicine 06/13/17 Simon Alcaraz MD [address] [place] [address] Insurance Assigned Provider 10/29/23 Bj Carrillo MD [address] [place] [address] [address] [place] [address] Gastroenterology 06/09/20 Renetta Maria PA-C [address] [place] [address] Physician Medical Artist Physician Medical Artist 12/11/24 Raman Kumar MBBS [address] [place] [address] [email or web address] Primary Oncologist Internal Medicine 04/04/25 documented as of this encounter Additional Source Comments The information contained in this document represents components of the legal health record. It is not the complete legal health record.[facility]
--- OUTSIDE RECORDS SUMMARY | 2025-04-17 12:12 | XMS_ITS | Encounter Summary ---
Author Organization [facility] Address [address] [place] [address] Care Team Providers Care Home Specialist Name Role Phone Simon Alcaraz MD Primary Care Provider [phone] Encounter Details Date Type Department Care Team (Late st Contact Info) Description 05/10/2019 Scanned Document GENERIC EXTERNAL DATA DEPARTMENT Shruti Luis MD [facility] [address] A Social History Tobacco [...] on filedocumented in this encounter Care Teams Home Specialist Relationship Specialty Start Date End Date Simon Alcaraz MD [address] [place] [address] PCP - General 05/10/19 documented as of this encounter
--- OUTSIDE RECORDS SUMMARY | 2025-04-17 12:12 | XMS_ITS | Encounter Summary ---
Author Organization [facility] Address [address] [place] [address] Care Team Providers Care Survey Chief Name Role Phone Simon Alcaraz MD Primary Care Provider [phone] Encounter Details Date Type Department Care Team (Late st Contact Info) Description 05/10/2019 Scanned Document [facility] [place] [address] [address] Shruti Luis MD [facility] [address] [facility] [place] A Social History Tobacco Use Types [...] on filedocumented in this encounter Care Teams Survey Chief Relationship Specialty Start Date End Date Simon Alcaraz MD [address] [place] [address] PCP - General 05/10/19 documented as of this encounter
--- OUTSIDE RECORDS SUMMARY | 2025-04-17 12:12 | XMS_ITS | Clinical Summary ---
Author Organization [facility] Address [address] [place] [address] Care Team Providers Care Websphere Architect Name Role Phone Simon Alcaraz MD Primary Care Provider [phone] Allergies Active Allergy Reactions Criticality Noted Date Comments Bee Venom Anaphylaxis High 05/11/2019 Sulfa Antibiotics Rash/Dermatitis,Angioedema High Medications Vitamin D3 (CHOLECALICEROL ) 2000 units tablet Take 2,000 Units by mouth daily. Active multivitamin (multivitamin) Tab tablet Take 1 tablet by mouth daily. Active melatonin 10 MG Tab tablet Take 10 mg by mouth nightly as needed. Active lisinopril (PRINIVIL,ZeSTR IL) 20 MG tablet Take 20 mg by mouth daily. Active rivaroxaban (XARELTO) 20 MG tablet Take 20 mg by mouth every evening with dinner. Take with meals. Active VALACYCLOVIR HCL PO Take 500 mg by mouth daily. Active TESTOSTERONE AQUEOUS IM Inject 80 mg into the shoulder, thigh, or buttocks once a week. Active vardenafil (LEVITRA) 20 MG tablet Take 20 mg by mouth daily as needed for erectile dysfunction. Active metoPROLOL TARTRATE (LOPRESSOR) 100 MG tabletIndicatio ns:Atrial flutter (HCC) Take 0.5 tablets (50 mg total) by mouth 2 (two) times a day. 30 tablet 1 05/14/2019 Active acetaminophen (TYLENOL) 325 MG tabletIndicatio ns:Atrial flutter (HCC) Take 2 tablets (650 mg total) by mouth every 4 (four) hours as needed for mild pain. 05/14/2019 Active Active Problems Problem Noted Date Diagnosed Date Atrial flutter 05/10/2019 Overview (05/10/2019): Added automatically from request for surgery [id number] Social History Tobacco Use Types Packs/Day Years Used Date Smoking Tobacco: Former Cigarettes 1 13 08 968 - 1987 Smokeless Tobacco: Never Alcohol Use Standard Drinks/Week Comments Yes 3 (1 standard drink = 0.6 oz pur e alcohol) Sex and Gender Information Value Date Recorded Sex Assigned at Not on file Legal Sex Male 2:29 PM EDT Gender Identity Not on file Sexual Orientation Not on file Last Filed Vital Signs Vital Sign Reading Time Taken Comments Blood Pressure 115/60 05/14/2019 8:00 PM EDT Pulse 81 05/14/2019 8:00 PM EDT Temperature 35.9 C (96.6 F) 05/14/2019 4:15 PM EDT Respiratory Rate 22 05/14/2019 8:00 PM EDT Oxygen Saturation 97% 05/14/2019 8:00 PM EDT Inhaled Oxygen Concentration - - Weight 88.5 kg (195 lb) 05/14/2019 11:45 AM EDT Height - - Body Mass Index - - Plan of Treatment Health Maintenance Due Date Last Done Comments Advance Care Planning 1950 Hepatitis C Virus Screening 1950 DTaP/Tdap/Td Vaccines (1 - Tdap) 1968 Pneumococcal Vaccines 50+ (1 of 1 - PCV) 1999 Zoster (Shingles) Vaccine (1 of 2) 1999 RSV Vaccine 60 years and old er and Patients (1 - 1-dose 75+ series) 2024 Influenza Vaccine 02/22/2025 COVID-19 Vaccine ( - 2023-2 5 season) 2025 Hepatitis B Vaccines Aged Out No long er eligible based on patient's age to complete this topic Insurance MEDICARE PART A & B [facility] [employer] Advance Directives * Full Code (Latest Code Status on File) Date Activated Date Inactivated Comments 05/14/2019 4:18 PM Care Teams Websphere Architect Relationship Specialty Start Date End Date Simon Alcaraz MD [address] [place] [address] PCP - General 05/10/19
--- OUTSIDE RECORDS SUMMARY | 2025-04-17 12:12 | XMS_ITS | Encounter Summary ---
Author Organization [facility] Address [address] [place] [address] [place] [address] Phone Care Team Providers Care Chemical Laboratory Technician Name Role Phone Simon Alcaraz MD Primary Care Provider [phone] Simon Alcaraz MD Unavailable [phone] Bj Carrillo MD Unavailable [phone] Renetta Maria PA-C Unavailable [phone] Raman Kumar Unavailable [phone] Encounter Details Date Type Department Care Team (Late st Contact Info) Description 12/09/2022 Procedure Pass [facility] [address] [place] [address] Social History Tobacco Use Types Packs/Day Years [...] Description 07/22/2025 4:00 PM EST Office Visit [facility] Internal Medicine [address] [place], [place] [phone] Simon Alcaraz MD [address] [place], [place] [phone] [email or web address] 09/20/2025 1:00 PM EST Ancillary Procedure [facility] [address] [place] [address] 3rd Floor, [address] [place] [address] Tino Youngblood MD [address] [place] [address], [address] [phone] [email or web address] 12/25/2025 1:00 PM EDT Office Visit [facility] Internal Medicine [address] [place], [place] [phone] Simon Alcaraz MD [address] [place], [place] [phone] documented as of this encounter Visit Diagnoses Not on filedocumented in this encounter Additional Health Concerns Assessment Noted Time PHQ-2 Depression Total Score: 0 06/14/20 22 8:06 AM EST documented as of this encounter Care Teams Chemical Laboratory Technician Relationship Specialty Start Date End Date Simon Alcaraz MD [address] [place] [address] [email or web address] PCP - General Internal Medicine 06/13/17 Simon Alcaraz MD [address] [place] [address] [email or web address] Insurance Assigned Provider 10/29/23 Bj Carrillo MD [address] [place] [address] [place] [address] Gastroenterology 06/09/20 Renetta Maria PA-C [address] [place] [address] [email or web address] Physician Business Job Titles Physician Business Job Titles 12/11/24 Raman Kumar MBBS [address] [place] [address] [email or web address] Primary Oncologist Internal Medicine 04/04/25 documented as of this encounter Additional Source Comments The information contained in this document represents components of the legal health record. It is not the complete legal health record.[facility]
--- OUTSIDE RECORDS SUMMARY | 2025-04-17 12:12 | XMS_ITS | Encounter Summary ---
Author Organization [facility] Address [address] [place] [address] [place] [address] Phone Care Team Providers Care Bun Machine Operator Name Role Phone Simon Alcaraz MD Primary Care Provider [phone] Simon Alcaraz MD Unavailable Bj Carrillo MD Unavailable [phone] Renetta Maria PA-C Unavailable [phone] Raman Kumar Unavailable [phone] Encounter Details Date Type Department Care Team (Late st Contact Info) Description 09/20/2024 Procedure Pass [facility], Ct Scan - [address] [address] Social History Tobacco Use Types Packs/Day Years [...] your housing situation today? I have henrik blankenship 06/19/2024 How many times have you move [...] 07/22/2025 4:00 PM EST Office Visit [facility] [address] [place] [address] Simon Alcaraz MD [address] [place] [address] 09/20/2025 1:00 PM EST Ancillary Procedure [facility] [address] [facility] 3rd Floor, [address] [place] [address] Tino Youngblood MD [address] [facility], [address] [place] [address] [email or web address] 12/25/2025 1:00 PM EDT Office Visit [facility] Internal Medicine [address] [place], [place] [phone] Simon Alcaraz MD [address] [place], [place] [phone] documented as of this encounter Visit Diagnoses Not on filedocumented in this encounter Additional Health Concerns Assessment Noted Time PHQ-2 Depression Total Score: 0 06/19/20 24 8:38 PM EST documented as of this encounter Care Teams Bun Machine Operator Relationship Specialty Start Date End Date Simon Alcaraz MD [address] [place], [place] [phone] PCP - General Internal Medicine 06/13/17 Simon Alcaraz MD [address] [place] [address] Insurance Assigned Provider 10/29/23 Bj Carrillo MD [address] [place] [address] Drive [address] [place] [address] Gastroenterology 06/09/20 Renetta Maria PA-C [address] [place] [address] [email or web address] Physician Neuropathologist Physician Neuropathologist 12/11/24 Raman Kumar MBBS [address] [place] [address] [email or web address] Primary Oncologist Internal Medicine 04/04/25 documented as of this encounter Additional Source Comments The information contained in this document represents components of the legal health record. It is not the complete legal health record.[facility]
--- OUTSIDE RECORDS SUMMARY | 2025-04-17 12:12 | XMS_ITS | Patient Health Record ---
Author Organization [facility] Address [address] [place] [address] Care Team Providers Care Public Works Manager Name Role Phone Simon Alcaraz MD Primary Care Provider Bj Armas Unavailable [phone] Allergies Allergen (clinical drug ingredient) Drug/Non Drug Allergy documented on EMR Reaction Allergy Type Onset Date Status Sulfa Unknown Drug Allergy Active sulfamethoxazole / trimethoprim Bactrim Unknown Drug Allergy Active bee stings (uncoded) Unknown Allergy Active Results Component Value Reference Range Notes Complete Blood Count Auto Di ff Reviewed date:01/16/2025 12:07:29 AM Interpretation: Performing Lab:[facility], [address] [place] [phone] Notes/Report: White Blood Count 5.2 4.8-10.8 X10*3/uL Red Blood Count 4.84 4.60-5.80 X10*6/uL Hemoglobin 15.7 14.0-18.0 g/dl Hematocrit 45.0 42.0-52.0 % Mean Corpuscular Volume 93.0 80.0-98.0 fL Mean Corpuscular Hemoglobin 32.4 27.0-33.0 pg Mean Corpuscular HGB Conc 34.9 31.0-36.0 g/dl Red Cell Distribution Width 13.2 11.0-16.0 % Platelet Count 172 160-400 X10*3/uL Mean Platelet Volume 10.4 9.4-12.4 fL Neutrophils Percent Auto 58.9 45-73 % Imm Gran Pct Auto 1.2 0.0-0.4 % Lymphocytes Percent Auto 17.7 20-40 % Monocytes Percent Auto 19.1 2-11 % Eosinophils Percent Auto 2.1 0-4 % Basophils Percent Auto 1.0 0-2 % NRBC Pct Auto 0.0 0.0-0.2 /100WBC Neutrophils Absolute Auto 3.1 2.0-8.3 x10*3/u L Imm Gran Abs Auto 0.06 0.00-0.03 X10*3/uL Lymphocytes Absolute Auto 0.9 1.2-4.9 X10*3/u L Monocytes Absolute Auto 1.0 0.1-1.2 X10*3/uL Eosinophils Absolute Auto 0.1 0.0-0.4 X10*3/u L Basophils Absolute Auto 0.1 0.0-0.2 X10*3/uL NRBC Abs Auto 0.000 0.0-0.012 X10*3/uL Prothrombin Time INR Reviewed date:01/16/2025 12:07:00 AM Interpretation: Performing Lab:[address] [phone] Notes/Report: Prothrombin Time 10.2 10.9-12.4 SEC INTERNATIONAL NORM RATIO 0.9 0.9-1.1 INTERNATIONAL NORMALIZED RATIO (INR) REFERENCE RANGES Reference Range For patients not on anticoagulant therapy: 0.9 - 1.1 INR ranges for oral anticoagulant therapy: For prevention and treatment of venous thrombosis and pulmonary embolism: 2.0 - 3.0 For acute myocardial infarction with aspirin therapy: 2.0 - 3.0 For acute myocardial infarction without aspirin therapy: 3.0 - 4.0 For patients with mechanical prosthetic heart valves: 2.5 - 3.5 Liver Panel Reviewed date:01/16/2025 12:05:06 AM Interpretation: Performing Lab:[facility], [address] [place] [phone] Notes/Report: Bilirubin Total 0.5 0.0-1.0 mg/dL Bilirubin Direct 0.3 0.0-0.5 mg/dL Aspartate Amino Transferase 29 5-37 U/L Alanine Aminotransferase 42 0-40 U/L Total Protein 6.5 6.5-8.0 g/dL Albumin Level 4.4 3.5-5.0 g/dL Alkaline Phosphatase 74 39-117 U/L Alpha Fetoprotein Reviewed date:02/17/2025 10:34:08 PM Interpretation: Performing Lab:[facility], [address] [place] [phone] Notes/Report: Alpha Fetoprotein 3.0 <6.1 ng/mL This test was performed using the Robbin Rita chemiluminescent method. Values obtained from different assay methods cannot be used interchangeably. AFP levels, regardless of value, should not be interpreted as absolute evidence of the presence or absence of disease. THIS TEST WAS PERFORMED AT: [facility] [address] [place] [phone] YURIDIA BIGGS MD Liver Fibrosis Pnl Reviewed date:02/17/2025 10:33:28 PM Interpretation: Performing Lab:[facility], [address] [place] [phone] Notes/Report: Liver Fibrosis Score 0.34 Liver Fibrosis Stage F1-F2 Liver Fibrosis Interpretation SEE NOTE minimal fibrosis Fibro Test Score (f) Metavir Score f>=0 and f<=0.21 : F0 (no fibrosis) f>0.21 and f<=0.27 : F0-F1 (no fibrosis) f>0.27 and f<=0.31 : F1 (minimal fibrosis) f>0.31 and f<=0.48 : F1-F2 (minimal fibrosis) f>0.48 and f<=0.58 : F2 (moderate fibrosis) f>0.58 and f<=0.72 : F3 (advanced fibrosis) f>0.72 and f<=0.74 : F3-F4 (advanced fibrosis) f>0.74 and f<=1.00 : F4 (severe fibrosis) Nec Inflam Act Score 0.15 Nec Inflam Act Grade A0 Nec Inflam Act Interpretation SEE NOTE no activity ActiTest Score (a) Metavir Score a>=0 and a<=0.17 : A0 (no activity) a>0.17 and a<=0.29 : A0-A1 (no activity) a>0.29 and a<=0.36 : A1 (minimal activity) a>0.36 and a<=0.52 : A1-A2 (minimal activity) a>0.52 and a<=0.60 : A2 (significant activity) a>0.60 and a<=0.62 : A2-A3 (significant activity) a>0.62 and a<=1.00 : A3 (severe activity) WER-Chciw-8-Macroglobulin 138 106-279 mg/dL FIB-Haptoglobin 34 43-212 mg/dL FIB-Apolipoprotein A1 157 94-176 mg/dL FIB-Total Bilirubin 0.5 0.2-1.2 mg/dL FIB-GGT 26 3-70 U/L FIB-ALT 30 9-46 U/L Reference ID [id number] Footnote SEE NOTE The reliability of results is dependent on compliance with the preanalytical and analytical conditions recommended by [employer]. The tests have to be deferred for: acute hemolysis, acute hepatitis, acute inflammation, extra hepatic cholestasis. The advice of a specialist should be sought for interpretation in chronic hemolysis and Gilbert's syndrome. The test interpretation is not validated in liver transplant patients. Isolated extreme values of one of the components should lead to caution in interpreting the results. In case of discordance between a biopsy result and a test, it is recommended to seek the advice of a specialist. The causes of these discordances could be due to a flaw of the test or to a flaw in the biopsy: i.e. a liver biopsy has a 33% variability rate for one fibrosis stage. FibroTest is interpretable for chronic hepatitis B and C, alcoholic and non alcoholic steatosis. ActiTest is interpretable for chronic hepatitis B and C. The performance characteristics have been determined by [facility]. It has not been cleared or approved by the U.S. Food and Drug Administration. Performance characteristics refer to the analytical performance of the test. [employer], the associated logo, [employer] and all associated [employer] robledo are the registered trademarks of [employer]. All third green party robledo - (R) and (TM) - are the property of their respective owners. (C) 5140-4830 [employer]. All rights reserved. THIS TEST WAS PERFORMED AT: [employer] [facility] [address] [place] [address] TAMIKA PEREZ MD,PHD,[place] US abdomen comp w elastograp hy (Not yet reviewed by provider) Interpretation: Performing Lab: Notes/Report: [address] [address] Ultrasound Report Signed Patient: Leesa Atkins MR#: [id number] : 1950 Acct:[id number] Age/Sex: 74 / M ADM Date: 01/15/25 Loc: HO.US Attending Dr: Bj Carrillo MD Ordering Physician: Bj Carrillo MD Date of Service: 01/15/25 Procedure(s): US abdomen comp w elastography Accession Number(s): [id number] cc: Simon Alcaraz MD; Bj Carrillo MD EXAMINATION: US ABDOMEN COMPLETE WITH LIVER ELASTOGRAPHY HISTORY: CHRONIC HEPATITIS TECHNIQUE: Real-time grayscale ultrasound imaging of the abdomen was performed and images were reviewed. COMPARISON: Comparison is made with the prior examination dated 07/23/2019. FINDINGS: Liver: The right lobe of the liver measures 15.4 cm in size. The left lobe of the liver measures 12.7 cm in size. The liver demonstrates increased echotexture, consistent with steatosis. No focal mass or intrahepatic biliary ductal dilatation is identified. There is normal hepatopedal flow in the portal vein. Ultrasound elastography of the liver was performed with 10 separate measurements of the liver parenchyma with the patient in the supine position. Measurements were obtained approximately 2 cm below Ketan's capsule and perpendicular to the capsule. The median shear wave velocity is 1.51 m/s. The interquartile range/median (IQR/median) is 0.07. Gallbladder and biliary tree: There are tiny polyps in the gallbladder. The gallbladder is otherwise unremarkable, without evidence of calculi, wall thickening, or pericholecystic fluid. There is no sonographic Peres sign. The common bile duct is normal in caliber measuring 3 mm. Kidneys: The right kidney measures 11.7 cm in length and demonstrates a 5 mm cyst in the interpolar region with a calcified wall. The left kidney measures 11.3 cm in length and is unremarkable. Pancreas: The pancreatic head, neck, and body are unremarkable. The pancreatic tail is obscured by bowel gas. Spleen: The spleen is enlarged, measuring 15.0 cm in length. Abdominal aorta and inferior vena cava: The visualized portions of the abdominal aorta and inferior vena cava are normal in caliber. There is no free fluid in the abdomen. US/US abdomen comp w elastography IMPRESSION: 1. Hepatic steatosis. 2. Tiny gallbladder polyps. 3. Splenomegaly. The median shear wave velocity in the liver is 1.51 m/s, corresponding to a median liver stiffness of 6.82 kPa. The IQR/median value is 0.07. This is indicative of a quality data set. Findings are indicative of a low elastography value which rules out advanced chronic liver disease in asymptomatic patients. REFERENCE: Society of Radiologists in Ultrasound Liver Stiffness Thresholds (2019): LIVER STIFFNESS THRESHOLDS: *Shear wave velocity less than 1.3 m/s (Liver Stiffness equal or less than 5 kPa): High probability of being normal. *Shear wave velocity less than 1.7 m/s (Liver Stiffness less than 9 kPa): In the absence of other known clinical signs, rules out compensated advanced chronic liver disease. *Shear wave velocity between 1.7-2.1 m/s (Liver Stiffness 9-13 kPa): Suggestive of compensated advanced chronic liver disease but need further test for confirmation. *Shear wave velocity between 2.1-2.4 m/s (Liver Stiffness 13-17 kPa): Rules in compensated advanced chronic liver disease. *Shear wave velocity greater than 2.4 m/s (Liver Stiffness over 17 kPa): Suggestive of clinically significant portal hypertension. QUALITY OF DATA SET: *IQR/Median value equal or less than 0.15 implies a quality data set. *IQR/Median value over 0.15 implies a poor quality data set. SIGNIFICANT CHANGE FROM PRIOR EXAM: Significant change if liver stiffness measurement is 10% or greater from prior exam. OTHER CONSIDERATIONS: The stage of liver fibrosis may be overestimated in the setting of acute hepatitis, liver inflammation, elevated liver function tests, hepatic vascular congestion, obstructive cholestasis, non-fasting state, and infiltrative diseases such as amyloidosis and lymphoma. In some patients with NAFLD, the liver stiffness thresholds for compensated advanced chronic liver disease may be lower. In causes other than viral hepatitis and NAFLD, liver stiffness thresholds are not well established. Electronically signed by: Bj Ventura MD 01/15/2025 11:09 AM EDT Dictated By: Bj Ventura MD Signed By: <Electronically signed by Bj Ventura MD in OV> 01/15/25 1109 DD/ 1008 TD/TT: 01/15/25 1038 Office Clin Asst: Pathology Reviewed date:04/08/2025 06:55:25 PM Interpretation: Performing Lab:[facility], [address] [facility], [place] [address] Notes/Report: Reason For Referral No Information Medications Medication SIG (Take, Route, Frequency, Duration) Notes Start Date End Date Status Eliquis 5 MG as directed Orally t wice a day Active Crestor 40 MG 1 tablet Orally Once a day Active Lisinopril 30 MG 1 tablet Orally Once a day Active dilTIAZem HCl ER 240 MG 1 tablet Orally Once a day Active hydroCHLOROthiazide 25 MG 1 tablet in morning Orally Once a day Active Immunizations Vaccine Route Administration Date Status Comme nts Influenza Unknown 05/25/2019 Administered Social History Tobacco Use: Social History Observation Description Date Details (start date - stop date) Former Smoker NA - NA Tobacco Use/Smoking Question Answer Notes Patient is a former smoker When did you stop smoking? year february1988 How long has it been since you last smoked? > 10 years AUDIT-C (Standard) Question Answer Notes Did you have a drink contain ing alcohol in the past year? Yes How often did you have a dri nk containing alcohol in the past year? Never (0 point) How many drinks did you have on a typical day when you were drinking in the past year? 1 or 2 drinks (0 point) How often did you have six o r more drinks on one occasion in the past year? Never (0 point) Points 0 Interpretation Negative Section Notes: Nonsmoker; occasional alcoho l Nonsmoker; occasional alcoho l Nonsmoker; occasional alcoho l Problems Problem Type SNOMED Code ICD Code Onset Dates Problem Status W/U Status Risk Notes Problem 139405786 Encounter for screening for malignant neoplasm of colon (Z12.11) Active confirmed Problem 166001509 History of adenomatous polyp of colon (Z86.010) Active confirmed Problem 239848573324123 Pre-procedural examination (Z01.818) Active confirmed Problem 153619156 History of chronic hepatitis (Z87.19) Active confirmed Vital Signs Blood pressure diastolic 77 mm Hg 11/27/2024 Height 67.5 in 11/27/2024 Blood pressure systolic 111 mm Hg 11/27/2024 Weight 202 lbs 11/27/2024 BMI 31.17 kg/m2 11/27/2024 Procedures Procedure Date Ordered Date Performed Result Body Sit e COLONOSCOPY 11/27/2024 N/A Encounters Encounter Location Date Provider Diagnosis [facility] Outpatient [address] [place] [id number] 02/13/2025 Bj Carrillo [facility] [address] [place] [phone] 11/27/2024 Bj Carrillo History of adenomatous polyp of colon Z86.010 ; Pre-procedural examination Z01.818 ; Encounter for screening for malignant neoplasm of colon Z12.11 and History of chronic hepatitis Z87.19 [facility] [address] [place] [phone] 04/08/2025 Bj Carrillo [facility] [address] [place] [phone] 04/12/2025 Bj Carrillo Assessments Encounter Date Diagnosis (ICD Code) Assessment Notes Treatment Notes Treatment Clinical Notes Section Notes 11/27/2024 History of adenomatous polyp of colon (ICD-10 - Z86.010) .Overall, Heriberto appears well at the present time and does not show any signs or have any symptoms to suggest any progression of liver disease in relation to the distant history of chronic hepatitis C. However, I did recommend he have an abdominal ultrasound and the below lab work including an alpha-fetoprotei n level. I have also recommended a follow-up screening colonoscopy given his history of tubular adenomas and his last colonoscopy being just over 5 years ago. We did review the rationale for that in regard to colon cancer prevention. Full consent has been obtained from him for this, including risks of bleeding and perforation. He was given the below instructions regarding adjustment of his medications for the procedure. The procedure will be done with monitored anesthesia care. Heriberto was comfortable with this plan. Thank you again for allowing me to participate in Heriberto's care. I shall continue to keep you advised of his progress. 11/27/2024 Pre-procedural examination (ICD-10 - Z01.818) .Overall, Heriberto appears well at the present time and does not show any signs or have any symptoms to suggest any progression of liver disease in relation to the distant history of chronic hepatitis C. However, I did recommend he have an abdominal ultrasound and the below lab work including an alpha-fetoprotei n level. I have also recommended a follow-up screening colonoscopy given his history of tubular adenomas and his last colonoscopy being just over 5 years ago. We did review the rationale for that in regard to colon cancer prevention. Full consent has been obtained from him for this, including risks of bleeding and perforation. He was given the below instructions regarding adjustment of his medications for the procedure. The procedure will be done with monitored anesthesia care. Heriberto was comfortable with this plan. Thank you again for allowing me to participate in Heriberto's care. I shall continue to keep you advised of his progress. 11/27/2024 Encounter for screening for malignant neoplasm of colon (ICD-10 - Z12.11) .Overall, Heriberto appears well at the present time and does not show any signs or have any symptoms to suggest any progression of liver disease in relation to the distant history of chronic hepatitis C. However, I did recommend he have an abdominal ultrasound and the below lab work including an alpha-fetoprotei n level. I have also recommended a follow-up screening colonoscopy given his history of tubular adenomas and his last colonoscopy being just over 5 years ago. We did review the rationale for that in regard to colon cancer prevention. Full consent has been obtained from him for this, including risks of bleeding and perforation. He was given the below instructions regarding adjustment of his medications for the procedure. The procedure will be done with monitored anesthesia care. Heriberto was comfortable with this plan. Thank you again for allowing me to participate in Heriberto's care. I shall continue to keep you advised of his progress. 11/27/2024 History of chronic hepatitis (ICD-10 - Z87.19) .Overall, Heriberto appears well at the present time and does not show any signs or have any symptoms to suggest any progression of liver disease in relation to the distant history of chronic hepatitis C. However, I did recommend he have an abdominal ultrasound and the below lab work including an alpha-fetoprotei n level. I have also recommended a follow-up screening colonoscopy given his history of tubular adenomas and his last colonoscopy being just over 5 years ago. We did review the rationale for that in regard to colon cancer prevention. Full consent has been obtained from him for this, including risks of bleeding and perforation. He was given the below instructions regarding adjustment of his medications for the procedure. The procedure will be done with monitored anesthesia care. Heriberto was comfortable with this plan. Thank you again for allowing me to participate in Heriberto's care. I shall continue to keep you advised of his progress. Plan Of Treatment Pending Test Test Name Order Date COLONOSCOPY 11/27/2024 LIVER PROFILE 11/27/2024 CBC w DIFF 11/27/2024 ALPHA-FETOPROTEIN,TUMOR MARKER 5 Prothrombin Time INR 11/27/2024 Liver Fibrosis Pnl 11/27/2024 US abdomen comp w elastography 5 US abdomen comp w elastography 5 Future Test Test Name Order Date COLONOSCOPY 12/26/2013 COLONOSCOPY 07/10/2019 Next Appt Details Provider Name:Bj Carrillo , 02/11/2026 01:00:00 PM, [address], [address], [place], [address], Insurance Providers Payer Name Payer Address Payer Phone Subscriber Number Group Number Insured Name Patient Relationship to Insured Coverage Start Date Coverage End Date MEDICARE OF [place] [address] [place] [address] [id number] LEESA ATKINS Self - patient is the insured 4 [employer] ([employer]) [address] [place] [address] [id number] LEESA ATKINS Self - patient is the insured Medical (General) History Medical History History ICD Code Colonoscopy 10-02-2008--1 sma ll tubular adenoma removed; he also had a negative colonoscopy [place] [address] Bishop History of hepatitis C treat ed with Interferon and Ribavirin---in the s--liver bx in 1994 revealed only mild hepatitis and no evidence of any fibrosis or cirrhosis--he had a nondetectable hepatitis C viral load in 2003 Hypertension Denies [place],DM,CVA,Lung disease,renal dise ase A flutter with tachycardia-c ardiac ablation at 04/2019--Dr. Luis and [facility] cardiologists Neg colonoscopy in 02/2014 Sleep apnea-uses CPAP Hyperlipidemia Follow-up screening colonosc opy in September 2019 with 2 tubular adenomas removed Surgical History Surgery Date(Month/Year) Umbilical hernia repair 2017 Basal cell cancer on nose 2018 Bilateral cataract surgery 01/2019 Eye surgery as a child
--- OUTSIDE RECORDS SUMMARY | 2025-04-17 12:12 | XMS_ITS | Encounter Summary ---
Author Organization [facility] Address [address] [place] [address] [place] [address] Phone Care Team Providers Care Hospital Secretary Name Role Phone Simon Alcaraz MD Primary Care Provider [phone] Simon Alcaraz MD Unavailable [phone] Bj Carrillo MD Unavailable [phone] Renetta Maria PA-C Unavailable [phone] Raman Kumar Unavailable [phone] Encounter Details Date Type Department Care Team (Late st Contact Info) Description 01/16/2021 Procedure Pass [facility], Ct Scan - [address] [address] Social History Tobacco Use Types Packs/Day Years [...] high school, GED, job training, learning the Ecuadorean language, technical skills, or developing parenting skills)? [...] Description 07/22/2025 4:00 PM EST Office Visit [facility] Internal Medicine [address], [place] [phone] Simon Alcaraz MD [address] [place], [place] [phone] 09/20/2025 1:00 PM EST Ancillary Procedure [facility] [address] [place] [address] 3rd Floor, [address] [place] [phone] Tino Youngblood MD [address] [place] [address], [address] [place] [phone] [email or web address] 12/25/2025 1:00 PM EDT Office Visit [facility] Internal Medicine [address], [place] [phone] Simno Alcaraz MD [address] [place], [place] [phone] documented as of this encounter Visit Diagnoses Not on filedocumented in this encounter Additional Health Concerns Assessment Noted Time PHQ-2 Depression Total Score: 0 06/08/20 19 3:58 PM EST documented as of this encounter Care Teams Hospital Secretary Relationship Specialty Start Date End Date Simon Alcaraz MD [address] [place] [address] [email or web address] PCP - General Internal Medicine 06/13/17 Simon Alcaraz MD [address] [place] [address] [email or web address] Insurance Assigned Provider 10/29/23 Bj Carrillo MD [address] [place] [address] Drive [address] [place] [address] Gastroenterology 06/09/20 Renetta Maria PA-C [address] [place] [phone] [email or web address] Physician Child Psychiatrist Physician Child Psychiatrist 12/11/24 Raman Kumar MBBS [address] [place] [phone] [email or web address] Primary Oncologist Internal Medicine 04/04/25 documented as of this encounter Additional Source Comments The information contained in this document represents components of the legal health record. It is not the complete legal health record.[facility]
== END 2025-04-17 10:17 | disposition home or self-care (01) ==
LOC: HO.HGS 09:58
PROVIDERS: PCP Internal Medicine
DX: K62.89 Other specified diseases of anus and rectum (principal)
CPT/HCPCS: 99203

== ENCOUNTER → 2025-04-17 09:58 | Outpatient (BNVA) | payer MEDICARE, OTHER, SELFPAY | PROVIDERS: PCP Internal Medicine | DX: K62.89 Other specified diseases of anus and rectum (principal) | CPT/HCPCS: 99202 ==